=== PATIENT | male | born 1985 | race Caucasian/White ===

== ENCOUNTER 2020-02-07 13:34 | Emergency (ER) | payer OTHER, SELFPAY ==
--- NOTE | ~2020-02-07 | CT_ITS ---
EXAMINATION: CT chst ab pel thor lum w EXAM DATE: 02/07/2020 15:33 INDICATION: 25 foot fall, chest abdomen pelvis pain. TECHNIQUE: Spiral CT of the chest, abdomen and pelvis was performed following intravenous injection o f 100 mL Omnipaque 350. Axial, coronal and sagittal images of the chest and also abdomen and pelvis reviewed. Axial, coronal and sagittal images of the thoracic and also the lumbar spine were reviewed . The dose-length product (DLP) for this examination was 453.01 mGy-cm. The exposure was tailored according to patient size (auto mA exposure control), and iterative reconstruction (ASIR) was used as additional dose reduction technique. There is no prior study for comparison. FINDINGS: CHEST: There is calcified left lower lobe granuloma and some dependent linear atelectasis. There ar e no pleural or pericardial effusions. Tracheobronchial tree is patent. There is no mediastinal, hilar or axillary lymphadenopathy. There is no pneumothorax. Heart normal in size. No evidence of coronary arterial calcification. ABDOMEN PELVIS: There is no solid organ injury. The liver, spleen, adrenal glands and pancreas are u nremarkable. Gallbladder is unremarkable. No biliary obstruction. Portal and splenic veins are pat ent. Kidneys enhance symmetrically. There is no hydronephrosis. The prostate is unremarkable. Th e bladder is unremarkable. There is no retroperitoneal or pelvic lymphadenopathy. The appendix is normal. The stomach and small bowel are unremarkable. There is expected amount of c olonic stool. No free intraperitoneal gas. There are no acute fractures identified. THORACIC SPINE: Paraspinal soft tissue is unremarkable. There are no acute fractures identified. The vertebral bodies are aligned in the AP dimension. Vertebral body and disc heights are well-maintained . No evidence of central canal or neural foraminal stenosis. LUMBAR SPINE: Sacrum, sacroiliac joints, sacral arcuate lines are intact. There is no evidence of ac shilpa lumbar fracture. There is no disc space widening or traumatic vertebral body subluxation suspect ed. Paraspinal soft tissue is unremarkable. Vertebral body and disc heights are well-maintained. There is moderate left neural foraminal stenosis at L5-S1, otherwise no more than mild lumbar spondyl osis. A detailed level by level evaluation of spondylosis can be added as addendum if requested. IMPRESSION: 1. No acute thoracolumbar fracture, chest abdomen or pelvis findings. Reviewed, dictated and finalized at location A.
--- NOTE | ~2020-02-07 | XR_ITS ---
EXAMINATION: XR shoulder RT min 2V EXAM DATE: 02/07/2020 17:19 INDICATION: Initial encounter following injury, with pain of the right shoulder. Fall. TECHNIQUE: The following right shoulder projections obtained: frontal projection with internal rotati on, frontal projection with external rotation, Grashey, and scapular Y view (4+ views). There is no prior study for comparison. FINDINGS: No evidence of right shoulder rotator cuff calcific tendinosis. There is mild acromiocla vicular joint primary osteoarthritis. There are no acute fractures or dislocations identified. There is no subcutaneous gas. The soft tissue is unremarkable. There are no radiopaque foreign bodies. IMPRESSION: 1. Right shoulder exam without acute osseous findings. Reviewed, dictated and finalized at location A.
--- NOTE | ~2020-02-07 | CT_ITS ---
EXAMINATION: CT cervical spine [facility] EXAM DATE: 02/07/2020 15:33 INDICATION: Fall, neck pain. Fell from 25 feet elevation. TECHNIQUE: Spiral CT of the cervical spine was performed without contrast. Axial images were reviewe d. Coronal and sagittal reformatted images were also reviewed. The dose-length product (DLP) for thi s examination was 453.01 mGy-cm. The exposure was tailored according to patient size (auto mA exposu re control), and iterative reconstruction (ASIR) was used as additional dose reduction technique. ere is no prior study for comparison. FINDINGS: There is no evidence of acute cervical fracture. The odontoid process is intact. Pre-dens space is normal. Prevertebral soft tissue is normal. There are no soft tissue abnormalities identi fied. There is moderate C5-6 disc disease with moderate to severe right-sided neural foraminal steno sis and moderate left-sided neural foraminal stenosis at that level. There is moderate left neural fo raminal stenosis at C3-4. Otherwise relatively mild cervical spondylosis. The vertebral bodies are a ligned in the AP dimension. IMPRESSION: 1. No acute cervical findings. 2. Cervical spondylosis. Reviewed, dictated and finalized at location A.
--- NOTE | ~2020-02-07 | XR_ITS ---
EXAMINATION: XR elbow RT min 3V EXAM DATE: 02/07/2020 17:19 INDICATION: Initial encounter following injury, with pain of the right elbow. Fall. TECHNIQUE: Right elbow frontal, lateral with flexion, and oblique projections obtained and reviewed. There is no prior study for comparison. FINDINGS: Right elbow anterior humeral line intact. No evidence of joint effusion. There are no acu te fractures or dislocations identified. There is no subcutaneous gas. The soft tissue is unremarka ble. There are no radiopaque foreign bodies. IMPRESSION: 1. Right elbow exam without acute osseous findings. Reviewed, dictated and finalized at location A.
[2020-02-07 13:40] VITALS: BP 155/85; PULSE 88; RESP 20; TEMP 36.7; O2SAT 100
[2020-02-07 14:00] VITALS: BP 148/101; PULSE 87; RESP 31; TEMP 36.7; O2SAT 99
[2020-02-07] MEDS: ONDANSETRON INJ 4 MG/2 ML VIAL IV PUSH (14:51)
[2020-02-07] MEDS: MORPHINE SULFATE 4 MG/ML INJ IV PUSH (14:52)
[2020-02-07 14:55] LABS: Basophils Percent Auto 0.2 % (0.2-1.2); Eosinophils Percent Auto 0.2 % (0-4.4); Hematocrit 42.5 % (42.0-52.0); Hemoglobin 14.6 g/dL (14.0-18.0); Immature Granulocyte Absolute 0.08 K/mm3 (0.00-0.031); Immature Granulocyte Percent A 0.5 % (0-0.5); Lymphocytes Absolute Auto 1.03 K/mm3 (0.9-3.2); Lymphocytes Percent Auto 5.9 % (18.3-44.2); Mean Corpuscular HGB Conc 34.4 g/dl (32-36); Mean Corpuscular Hemoglobin 31.7 pg (26-34); Mean Corpuscular Volume 92.2 fl (80-100); Mean Platelet Volume 10.5 fl (7.4-10.4); Monocytes Percent Auto 11.1 % (2.6-8.5); Neutrophils Absolute Auto 14.4 K/mm3 (1.3-6.7); Neutrophils Percent Auto 82.1 % (45.5-73.1); Platelet Count Result 264 k/mm3 (150-375); Red Blood Count 4.61 M/mm3 (4.6-6.20); Red Cell Distribution Width 12.2 % (11.5-14.5); White Blood Count 17.5 K/mm3 (4.5-10.0)
[2020-02-07 15:13] LABS: Potassium 3.7 mmol/L (3.4-5.0)
[2020-02-07 15:17] LABS: Alanine Aminotransferase 77 U/L (4-50); Albumin Level 4.7 g/dL (3.5-5.1); Alkaline Phosphatase 54 U/L (38-126); Anion Gap 10 mmol/L (8-16); Aspartate Amino Transferase 110 U/L (17-59); Bilirubin,Total 0.5 mg/dL (0.2-1.3); Blood Urea Nitrogen 15 mg/dL (9-20); Calcium 9.8 mg/dL (8.4-10.2); Carbon Dioxide 26 mmol/L (22-30); Chloride 102 mmol/L (98-107); Estimated CRCL calculation 98 ml/min; Estimated Glomerular Filt Rate > 60; Glucose 109 mg/dL (75-110); Sodium 138 mmol/L (137-145)
[2020-02-07 15:22] LABS: Estimated CRCL calculation 89 ml/min; Estimated Glomerular Filt Rate > 60
[2020-02-07 16:06] LABS: INR 1.1; Prothrombin Time 13.6 Seconds (11.1-14.7)
[2020-02-07 16:07] LABS: Partial Thromboplastin Time 25.8 SECONDS (22.3-36.8)
--- NOTE | 2020-02-07 16:35 | WC.ED.TRAUMA ---
HPI - Trauma General Chief Complaint: Trauma Stated Complaint: fall 1 story Time Seen by Provider: 02/07/20 14:13 Source: patient Mode of arrival: ambulatory Limitations: no limitations History of Present Illness HPI narrative: This is a 34-year-old male that presents the emergency department after a fall today. Reports he fell through the floor and landed in the basement on the concrete. Reports he landed on his right side. Denies hitting his head or loss of consciousness. Reports since he has had right sided chest pain, neck pain, and back pain. Also reports right shoulder and elbow pain. Reports he did lay on the floor for a little bit, but when he got up he was able to walk. Denies vision changes, vomiting, numbness, or weakness. Related Data Allergies Allergy/AdvReac Type Severity Reaction Status Date / Time No Known Allergies Allergy Verified 02/07/20 14:13 Review of Systems Review of Systems: Narrative: CONSTITUTIONAL: Denies fever EYES: Denies visual changes CARDIOVASCULAR: Reports chest pain RESPIRATORY: Denies dyspnea. GASTROINTESTINAL: Reports abdominal pain. Denies nausea, vomiting GENITOURINARY: Denies dysuria or hematuria. SKIN: Denies rash MUSCULOSKELETAL: Reports back pain, joint pain, and myalgia. NEUROLOGIC: Denies headache, numbness, or weakness. All systems reviewed & are unremarkable except as noted in HPI and below PMFSH Past Medical History Medical History (Updated 02/07/20 @ 19:28 by Monse Valladares PA-C) No active medical problems Social History Social History (Updated 02/07/20 @ 16:38 by Monse Valladares PA-C) Smoking status: Current every day smoker Exam Narrative: Exam Narrative: GENERAL: Well-appearing, well-nourished, and in no acute distress. HEAD: Normocephalic, atraumatic. EYES: PERRLA and EOMI. ENT: Nares clear, no rhinorrhea or epistaxis. Mucous membranes moist. Oropharynx without tonsillar hypertrophy exudate or other lesions. Bilateral TMs pearly garcia non-bulging NECK: Supple. No adenopathy or masses. Tender to palpation of right sided cervical paraspinal musculature CHEST: Clear to auscultation. No respiratory distress. No wheezes rales or rhonchi HEART: Regular rate and rhythm. No murmur heard. Normal peripheral pulses. ABDOMEN: Soft, nontender, nondistended, normal active bowel sounds. BACK: Tender to palpation of midline thoracic and lumbar spine EXTREMITIES: Normal range of motion. No edema or obvious deformity. Strength equal in bilateral upper and lower extremities (5/5) SKIN: Warm, dry, no rash. NEURO: No focal deficits. Alert and oriented x3. Cranial nerves II through XII grossly intact PSYCH: Normal mood and affect Course Vital Signs Vital signs: Vital Signs Temperature 98.1 F 02/07/20 13:40 Pulse Rate 88 02/07/20 13:40 Respiratory Rate 20 02/07/20 13:40 Blood Pressure 155/85 H 02/07/20 13:40 Pulse Oximetry 100 02/07/20 13:40 Temperature 98.1 F 02/07/20 14:00 Pulse Rate 92 02/07/20 18:18 Respiratory Rate 25 H 02/07/20 18:18 Blood Pressure 144/97 H 02/07/20 18:18 Pulse Oximetry 98 02/07/20 18:18 MDM - Trauma MDM Narrative Medical decision making narrative: Patient presents the emergency department today after a fall from height. Landed on his right side. Denied hitting his head or loss of consciousness. His vitals are stable. He is neurologically intact. CBC with leukocytosis to 17.5, likely stress reaction. No infectious symptoms. Metabolic panel without concerning findings. CT scan of the cervical spine is without acute findings. CT scan of the chest/abdomen/pelvis, thoracic and lumbar spine is without acute findings. Right shoulder and elbow x-rays are without acute findings. Patient was updated on case findings. Mentioned to me that he would also like to be tested and presumptively treated for STDs. UA with 7-9 white blood cells, and 11-20 red blood cells. This will be sent for culture. Chlamydia, gonorrh
[2020-02-07 17:17] VITALS: BP 147/98; PULSE 85; RESP 18; O2SAT 100
[2020-02-07 17:45] LABS: Add Urine Microscopic? YES; Appearance Urine Clear (Clear); Bilirubin Urine Negative (Negative); Blood Urine 2+ (Negative); Color Urine Yellow (Yellow); Glucose Urine UA 1+ mg/dL (Negative); Ketones Urine Trace mg/dL (Negative); Leukocyte Esterase Ur Negative LEU/UL (Negative); Mucus Urine Heavy /lpf; Nitrate Urine Negative (Negative); Protein Urine 2+ mg/dL (Negative); Squamous Epithelial Cell Urine Rare /hpf (Few); Urobilinogen Urine Negative mg/dL (<2.0)
[2020-02-07 17:47] LABS: Specific Grav Ur > 1.060 (1.001-1.035)
[2020-02-07] MEDS: AZITHROMYCIN 250 MG TABLET 1000 MG PO (18:12)
[2020-02-07] MEDS: metroNIDAZOLE 250 MG TABLET 2000 MG PO (18:12)
[2020-02-07] MEDS: cefTRIAXone 250 MG VIAL IM (18:13)
[2020-02-07 18:18] VITALS: BP 144/97; PULSE 92; RESP 25; O2SAT 98
--- NOTE | 2020-02-07 18:18 | PC.NURSE ---
Assumed care of pt. Discussed POC. Female at bedside. VSS.
[2020-02-07 20:01] VITALS: BP 134/82; PULSE 80; RESP 18; TEMP 36.8; O2SAT 98
[2020-02-07 20:11] VITALS: BP 156/86; PULSE 69; RESP 16; O2SAT 98
== END 2020-02-07 20:02 | disposition home or self-care (01) ==
PROVIDERS: Physician Assistant; Emergency Provider Emergency Medicine
DX: M54.9 Dorsalgia, unspecified (principal); M25.511 Pain in right shoulder; W13.3XXA Fall through floor, initial encounter; F17.200 Nicotine dependence, unspecified, uncomplicated
CPT/HCPCS: 36415; 71260; 72125; 72129; 72132; 73030; 73080; 74177; 80053; 81001; 85025; 85610; 85730; 87086; 87491; 87591; 87661; 96365; 96372; 96375; 99284; A9270; J0131; J0696; J2270; J2405; L0140; Q9967

== ENCOUNTER 2021-03-21 18:39 | Emergency (ER) | payer OTHER, SELFPAY ==
--- NOTE | ~2021-03-21 | XR_ITS ---
XR hand RT min 3V 03/21/2021 19:09 Indication: Right first distal phalangeal trauma Procedure: 3 views right hand Comparison: No prior studies for comparison. Findings: There is a nondisplaced comminuted fracture of the first distal phalanx. Mild soft tissue s welling. No foreign bodies. There are degenerative changes of the first metacarpal phalangeal joint. No other fracture. Impression: 1: Comminuted nondisplaced fracture right first distal phalanx. Reviewed, dictated and finalized at location A. Impression: 1: Comminuted nondisplaced fracture right first distal phalanx.
[2021-03-21 18:42] VITALS: BP 152/108; PULSE 100; RESP 18; TEMP 36.6; O2SAT 100
--- NOTE | 2021-03-21 18:57 | ED_ITS ---
HPI - Extremity Injury (Upper) General Chief Complaint: Extremity Injury, Upper Stated Complaint: RIGHT THUMB INJURY Time Seen by Provider: 03/21/21 18:49 Source: patient Mode of arrival: ambulatory Limitations: no limitations History of Present Illness HPI narrative: Patient is a 36-year-old male complaining of right thumb pain after he accidentally smashed it at work with a hammer while working yesterday. Patient states that his pain is 9 out of 10, aching, worse with palpation and movement. Patient denies any other pain or injuries. Related Data Allergies Allergy/AdvReac Type Severity Reaction Status Date / Time No Known Allergies Allergy Verified 02/07/20 14:13 Review of Systems Review of Systems: All systems reviewed & are unremarkable except as noted in HPI and below Constitutional: Constitutional: Reports as per HPI [facility] Past Medical History Medical History (Updated 03/21/21 @ 19:56 by Kevyn Addison MD) No active medical problems Social History Social History (Updated 02/07/20 @ 16:38 by Monse Valladares PA-C) Smoking status: Current every day smoker Comments Past medical history: None Family history: Noncontributory Social history: Positive for smoker, no EtOH or drug use Exam Const: General: no acute distress and alert Orientation/consciousness: patient oriented x3 HENMT: Head: normal to inspection Eyes: Conjunctivae: conjunctivae normal Pupils: Equal, round and reactive pupils present EOM: EOMs intact bilaterally Neck: Neck: normal visual inspection Resp: Effort & Inspection: normal respiratory effort Neuro: General: patient oriented x3 and moves all extremities Extrem: Other: Right thumb swelling, contusion right thumb, ecchymosis right thumb, limited range of motion due to pain, neurovascular is intact Course Vital Signs Vital signs: Vital Signs Temperature 36.6 C 03/21/21 18:42 Pulse Rate 100 03/21/21 18:42 Respiratory Rate 18 03/21/21 18:42 Blood Pressure 152/108 H 03/21/21 18:42 Pulse Oximetry 100 03/21/21 18:42 Temperature 36.6 C 03/21/21 18:42 Pulse Rate 100 03/21/21 18:42 Respiratory Rate 18 03/21/21 18:42 Blood Pressure 152/108 H 03/21/21 18:42 Pulse Oximetry 100 03/21/21 18:42 Discharge Plan Discharge Clinical Impression: Fracture of distal phalanx of finger of right hand Patient Disposition: Home, Self-Care Condition: Improved Instructions: Finger Fracture (ED) Prescriptions: New hydrocodone-acetaminophen 5-325 mg tablet 1 tablet PO Q6H PRN (Reason: pain) Qty: 10 RF: 0 cephalexin 500 mg capsule 500 mg PO Q12H 5 Days Qty: 10 RF: 0 No Action ketorolac 10 mg tablet 10 mg PO Q6H PRN (Reason: pain) 5 Days Qty: 20 RF: 0 Follow-up/Referrals: PHYSICIAN,SCIENCE AND OPERATIONS OFFICER [Primary Care Provider] - Andrew Fonseca MD [Physician] - 03/22/21 (Call for an appointment) Time of Disposition: 19:58
[2021-03-21] MEDS: HYDROcodone/acetaminophen (*CRX) 7.5-325 MG TABLET 1 TAB PO (19:14)
[2021-03-21] MEDS: KETOROLAC 30 MG/ML VIAL (*BKC) IM (19:15)
[2021-03-21] MEDS: TETANUS,DIPHTHERIA,AC PERTUSSIS ADULT (0.5 ML) BOOSTRIX IM (19:17)
[2021-03-21] MEDS: CEPHALEXIN 500 MG CAPSULE PO (19:56)
== END 2021-03-21 20:00 | disposition home or self-care (01) ==
PROVIDERS: Emergency Provider Emergency Medicine
DX: S62.524A Nondisplaced fracture of distal phalanx of right thumb, initial encounter for closed fracture (principal); W27.0XXA Contact with workbench tool, initial encounter; Z23 Encounter for immunization
CPT/HCPCS: 29130; 73130; 90471; 90715; 96372; 99284; A9270; J1885

== ENCOUNTER 2021-03-24 22:31 | Emergency (ER) | payer OTHER, SELFPAY ==
[2021-03-24 22:34] VITALS: BP 150/79; PULSE 84; RESP 20; TEMP 36.5; O2SAT 95
--- NOTE | 2021-03-24 23:25 | PC.NURSE ---
Pt and visitor seen exiting ER lobby to parking lot.
--- NOTE | 2021-03-24 23:30 | ED.EYEPROB ---
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, that he got for an object in his left eye which he believes to be a speck of drywall There was no high velocity grinding or striking with a sledgehammer anything like that during the course of his job In the intervening 3 days that has been subjected to his efforts to remove it in home by various means including rubbing it showering it washing it out under a faucet It seems that tonight his girlfriend finally was able to talk him into the coming to the hospital His eye is red and teary but vision seems to be okay although he has trouble opening the eye MD chief complaint: eye pain and eye redness Related Data Allergies Allergy/AdvReac Type Severity Reaction Status Date / Time No Known Allergies Allergy Verified 03/24/21 22:49 Review of Systems Eyes: Eyes: Reports no additional eye complaints and Reports photophobia ENT: Denies vertigo and Denies dizziness Neurologic: Denies headache(s), Denies numbness and Denies weakness Hematologic/Lymphatic: Hematologic/Lymphatic: Denies easy bleeding and Denies easy bruising PMFSH Past Medical History Medical History No active medical problems Social History Social History Smoking status: Current every day smoker Exam Const: General: cooperative, no acute distress and alert Orientation/consciousness: patient oriented x3 (alert) Other: + EtOH HENMT: Head: normal to inspection, normocephalic and atraumatic Ears: external ears normal General nose exam: no epistaxis Eyes: Pupils: Equal, round and reactive pupils present Other: OS conjunctiva injected There is a corneal foreign body at 10:00 about nursing home to the [facility] Is embedded and cannot be removed with a Q-tip Alcaine completely relieved all his symptoms The eyelid was everted and there was no foreign body beneath it Neck: Neck: normal visual inspection, supple and no JVD Resp: Effort & Inspection: normal respiratory effort and not labored Auscultation: other (BS =) Skin: General skin exam: no rashes or lesions noted Neuro: General: patient oriented x3 (alert) and moves all extremities Course Course Emergency Course: See procedure note Patient eloped from the ED while I was discussing his case with ophthalmology at [facility] to arrange follow-up Contacted him on his cell phone and asked him to come back and get his directions which he did Vital Signs Vital signs: Vital Signs Temperature 36.5 C 03/24/21 22:34 Pulse Rate 84 03/24/21 22:34 Respiratory Rate 20 03/24/21 22:34 Blood Pressure 150/79 H 03/24/21 22:34 Pulse Oximetry 95 03/24/21 22:34 Temperature 36.5 C 03/24/21 22:34 Pulse Rate 84 03/24/21 22:34 Respiratory Rate 20 03/24/21 22:34 Blood Pressure 150/79 H 03/24/21 22:34 Pulse Oximetry 95 03/24/21 22:34 Procedures FB Removal Eye Foreign Body #1: Foreign Body Removal Date: 03/24/21 Foreign Body Removal Time: 22:30 Location: eye (L) Topical anesthetic used: tetracaine Foreign body: metal Evidence of corneal penetration: No Technique: cotton tip swab and needle Procedure performed under: direct visualization with magnification Post-procedure medication: topical anesthetic Patient tolerated procedure: well Complications: residual rust ring Foreign Body Removal Narrative: Discussed that foreign body remains and that he needs to
--- NOTE | 2021-03-24 23:38 | PC.NURSE ---
Pt given specific d/c instructions verbally and in paper form by dr. bravo, with this RN as witness. pt verbalized understanding of need to call [facility] next business day which is friday am, for procedure.
== END 2021-03-24 23:41 | disposition home or self-care (01) ==
PROVIDERS: Emergency Provider Emergency Medicine
DX: T15.02XA Foreign body in cornea, left eye, initial encounter (principal); F17.200 Nicotine dependence, unspecified, uncomplicated
CPT/HCPCS: 65220; 99283

== ENCOUNTER 2022-02-25 12:05 | Emergency (ER) | payer OTHER, SELFPAY ==
--- NOTE | ~2022-02-25 | CT_ITS ---
EXAMINATION: CT brain wo con DATE: 02/25/2022 13:01 INDICATION: Generalized headache. TECHNIQUE: Computed tomography (CT) of the head was performed without intravenous contrast. The dose- length product was 605.33 mGy-cm. Automated exposure control and iterative reconstruction technique w ere employed. COMPARISON: No prior studies for comparison. FINDINGS: Normal brain parenchymal volume. No acute intracranial hemorrhage, infarction, mass or mass effect. There is focal encephalomalacia left frontal lobe, likely posttraumatic. Paranasal sinuses a nd mastoids are pneumatized. IMPRESSION: 1. Focal encephalomalacia left frontal lobe, likely posttraumatic. 2: No acute intracranial abnormality. Reviewed, dictated and finalized at location A.
--- NOTE | 2022-02-25 12:14 | PC.NURSE ---
EDP at bedside to assess pt.
[2022-02-25 12:19] VITALS: BP 144/87; PULSE 101; RESP 18; TEMP 36.4; O2SAT 100
[2022-02-25] MEDS: SODIUM CHLORIDE 0.9% IV 1,000 ML 999 ML IV CONT (12:36)
--- NOTE | 2022-02-25 12:38 | ED.HA ---
HPI - Headache General Chief Complaint: Headache Stated Complaint: headache, body aches Time Seen by Provider: 02/25/22 12:13 History of Present Illness HPI Narrative: 37-year-old male presents to the emergency room with a sudden onset of headache 4 days ago. Patient states that headache is in the middle of his head, describes it as a dull throbbing sensation and radiates into his neck. States when the headache began he was experiencing chills and diaphoresis. Headache is associated with body aches. Denies any nausea or vomiting. Denies any vision or hearing changes. But denies any injury or or trauma. Denies back pain. Denies dizziness or lightheadedness. Related Data Allergies Allergy/AdvReac Type Severity Reaction Status Date / Time No Known Allergies Allergy Verified 02/25/22 12:38 Review of Systems Review of Systems: CONSTITUTIONAL: Reports chills and sweats EYES: Denies visual changes, redness, or discharge. ENT: Denies rhinorrhea, congestion, sore throat, or otalgia. CARDIOVASCULAR: Denies chest pain, palpitations, or edema. RESPIRATORY: Denies cough or dyspnea. GASTROINTESTINAL: Denies abdominal pain, nausea, vomiting, or diarrhea. GENITOURINARY: Denies dysuria or hematuria. SKIN: Denies rash or itching. MUSCULOSKELETAL: Denies back pain, joint pain, or myalgia. NEUROLOGIC: Reports sciatic PSYCHIATRIC: Denies anxiety or depression. PMFSH Past Medical History Medical History No active medical problems Social History Social History Smoking status: Current every day smoker Exam Narrative: GENERAL: Well-appearing, well-nourished, no physical limitations, and in no acute distress. HEAD: Normocephalic, atraumatic. EYES: Conjunctivae normal, PERRLA and EOMI. ENT: External nose normal, Nares clear, no rhinorrhea or epistaxis. External ears normal, bilateral TMs normal bilaterally NECK: Supple. No meningeal signs. CHEST: Clear to auscultation. No respiratory distress. No wheezes rales or rhonchi. HEART: Regular rate and rhythm. No murmur heard. Normal peripheral pulses. ABDOMEN: Soft, nontender, nondistended, normal active bowel sounds. BACK: No cervical/thoracic/lumbar tenderness, step-offs, bony abnormality; FROM EXTREMITIES: Normal range of motion. No edema. No clubbing or cyanosis SKIN: Warm, dry, no rash. No noted wounds NEURO: No focal deficits. Alert and oriented x3. MAEW. CN's II-XI intact bilaterally, normal gait PSYCH: Cooperative. Normal mood and affect. Course Vital Signs Vital signs: Vital Signs Temperature 36.4 C L 02/25/22 12:19 Pulse Rate 101 H 02/25/22 12:19 Respiratory Rate 18 02/25/22 12:19 Blood Pressure 144/87 H 02/25/22 12:19 Pulse Oximetry 100 02/25/22 12:19 Oxygen Delivery Room Air 02/25/22 12:19 Temperature 36.4 C L 02/25/22 12:19 Pulse Rate 101 H 02/25/22 12:19 Respiratory Rate 18 02/25/22 12:19 Blood Pressure 144/87 H 02/25/22 12:19 Pulse Oximetry 100 02/25/22 12:19 Oxygen Delivery Room Air 02/25/22 12:19 MDM - Headache Lab Data Result diagrams: 02/25/22 12:37 02/25/22 12:37 Labs: Lab Results 02/25/22 02/25/22 02/25/22 Range/Units 12:37 12:37 12:37 WBC 3.6 L (4.5-10.0) K/mm3 RBC 4.45 L (4.6-6.20) M/mm3 Hgb 13.9 L (14.0-18.0) g/dL Hct 39.9 L (42.0-52.0) % MCV 89.7 (80-100) fl MCH 31.2 (26-34) pg MCHC 34.8 (32-36) g/dl RDW 11.9 (11.5-14.5) % Plt Count 183 (150-375) k/mm3 MPV 10.4 (7.4-10.4) fl Immature Gran % (Auto) 0.3 (0-0.5) % Neut % (Auto) 39.6 L (45.5-73.1) % Lymph % (Auto) 27.2 (18.3-44.2) % Letcher % (Auto) 27.5 H (2.6-8.5) % Eos % (Auto) 4.9 H (0-4.4) % Baso % (Auto) 0.5 (0.2-1.2) % Lymph # (Auto) 0.99 (0.9-3.2) K/mm3 Letcher # (Auto) 1.0 H (0.1-0.6) K/mm3 Eos # (Auto) 0.2 (0-0.3) K
[2022-02-25 12:45] LABS: Appearance Urine Clear (Clear); Basophils Percent Auto 0.5 % (0.2-1.2); Bilirubin Urine Negative (Negative); Blood Urine Negative (Negative); Color Urine Yellow (Yellow); Eosinophils Absolute Auto 0.2 K/mm3 (0-0.3); Eosinophils Percent Auto 4.9 % (0-4.4); Glucose Urine UA Negative (Negative); Hematocrit 39.9 % (42.0-52.0); Hemoglobin 13.9 g/dL (14.0-18.0); Immature Granulocyte Absolute 0.01 K/mm3 (0.00-0.031); Immature Granulocyte Percent A 0.3 % (0-0.5); Ketones Urine Trace mg/dL (Negative); Leukocyte Esterase Ur Negative LEU/UL (Negative); Lymphocytes Absolute Auto 0.99 K/mm3 (0.9-3.2); Lymphocytes Percent Auto 27.2 % (18.3-44.2); Mean Corpuscular HGB Conc 34.8 g/dl (32-36); Mean Corpuscular Hemoglobin 31.2 pg (26-34); Mean Corpuscular Volume 89.7 fl (80-100); Mean Platelet Volume 10.4 fl (7.4-10.4); Monocytes Percent Auto 27.5 % (2.6-8.5); Neutrophils Absolute Auto 1.4 K/mm3 (1.3-6.7); Neutrophils Percent Auto 39.6 % (45.5-73.1); Nitrate Urine Negative (Negative); Platelet Count Result 183 k/mm3 (150-375); Protein Urine 1+ mg/dL (Negative); Red Blood Count 4.45 M/mm3 (4.6-6.20); Red Cell Distribution Width 11.9 % (11.5-14.5); Specific Grav Ur 1.025 (1.001-1.035); White Blood Count 3.6 K/mm3 (4.5-10.0); pH Urine 6.5 (5.0-9.0)
[2022-02-25 12:50] LABS: Mucus Urine Few /lpf; RBC Urine 0-2 /hpf (0-2); WBC Urine 0-3 /hpf
[2022-02-25 12:55] LABS: Add Urine Microscopic? YES
[2022-02-25 13:01] LABS: Lactic Acid Reflex 0.7 mmol/L (0.7-2.0)
[2022-02-25 13:02] LABS: Alanine Aminotransferase 34 U/L (6-50); Albumin Level 4.4 g/dL (3.5-5.1); Alkaline Phosphatase 49 U/L (38-126); Anion Gap 9 mmol/L (8-16); Aspartate Amino Transferase 36 U/L (17-59); Bilirubin,Total 0.3 mg/dL (0.2-1.3); Blood Urea Nitrogen 10 mg/dL (9-20); Calcium 8.8 mg/dL (8.4-10.2); Carbon Dioxide 27 mmol/L (22-30); Chloride 101 mmol/L (98-107); Estimated CRCL calculation 110 ml/min; Estimated Glomerular Filt Rate > 60; Glucose 89 mg/dL (65-110); Sodium 137 mmol/L (137-145)
[2022-02-25] MEDS: KETOROLAC 30 MG/ML VIAL (*BKC) IV PUSH (13:17)
[2022-02-25 13:49] LABS: SARS-CoV-2 RNA PCR Negative
[2022-02-25 14:20] LABS: CRP 1.2 mg/dL (<1.0)
[2022-02-25 14:52] VITALS: BP 122/78; PULSE 76; RESP 18; O2SAT 100
[2022-02-25 15:22] LABS: Erythrocyte Sedimentation Rate 17 mm/hr (0-20)
== END 2022-02-25 14:55 | disposition home or self-care (01) ==
PROVIDERS: Emergency Provider Nurse Practitioner Family
DX: G44.209 Tension-type headache, unspecified, not intractable (principal); Z20.822 Contact with and (suspected) exposure to COVID-19; F17.200 Nicotine dependence, unspecified, uncomplicated
CPT/HCPCS: 36415; 70450; 80053; 81001; 83605; 85025; 85652; 86140; 96361; 96374; 99284; C9803; J1885; J7030; U0003; U0005

== ENCOUNTER 2023-04-15 08:26 | Emergency (ER) | payer OTHER, SELFPAY ==
--- NOTE | ~2023-04-15 | CT_ITS ---
EXAMINATION: CT BRAIN W/O DATE: 04/15/2023 09:17 INDICATION: Headache TECHNIQUE: Computed tomography (CT) of the head was performed without intravenous contrast. The dose- length product was 529.67 mGy-cm. Automated exposure control and iterative reconstruction technique w ere employed. COMPARISON: No prior studies for comparison. FINDINGS: Normal brain parenchymal volume for age. Normal garcia-white differentiation. No acute intrac ranial hemorrhage, infarction, mass or mass effect. No ventriculomegaly or midline shift. Midline sagittal images demonstrate a normal corpus callosum, c raniovertebral junction and sella turcica. Basilar cisterns are patent. Paranasal sinuses and mastoids are pneumatized. No depressed skull fractures. IMPRESSION: 1. No acute intracranial abnormality. Reviewed, dictated and finalized at location L. CAL MASSAGE THERAPIST
--- NOTE | ~2023-04-15 | CT_ITS ---
EXAMINATION: CTA brain carotid DATE: 04/15/2023 10:07 INDICATION: Headache. Left hemiparesis. TECHNIQUE: Computed tomographic angiography (CTA) of the head was performed with 100 mL Omnipaque-350 intravenous contrast. CTA of the neck was performed with intravenous contrast. Automated exposure co ntrol and iterative reconstruction technique were employed. The dose-length product was 1050.00 mGy-c m. Maximum intensity projection and volume rendered 3D-reconstructions were created by the [employer] st on a separate workstation. COMPARISON: Head CT 04/15/2023 FINDINGS: HEAD CTA: There is no intracranial hemorrhage, acute infarction, or abnormal intracranial mass lesion . The ventricles are normal in size. There is mild mucosal thickening in the paranasal sinuses. The o rbits are normal. The mastoid air cells are normal. Left vertebral artery is dominant. There is no si gnificant stenosis of basilar artery or the posterior cerebral arteries. The posterior communicating arteries are normal. There is no significant stenosis of the intracranial internal carotid arteries o r anterior or middle cerebral arteries. Anterior communicating artery is normal. There is no aneurysm . NECK CTA: There are no pathologically enlarged lymph nodes. There is no significant stenosis of the v ertebral arteries. There is no visible plaque in the proximal internal carotid arteries. There is 0% stenosis of the proximal right internal carotid artery relative to normal distal artery lumen diamete r (NASCET criteria). There is 0% stenosis of the proximal left internal carotid artery relative to no rmal distal artery lumen diameter. There is moderate cervical spondylosis. IMPRESSION: 1. Normal brain. No aneurysm or significant intracranial internal stenosis. 2. 0% stenosis of the proximal internal carotid arteries relative to normal distal artery lumen diam eters (NASCET criteria). Reviewed, dictated and finalized at location E. TION PAINT MACHINE TENDER IMPRESSION: 1. Normal brain. No aneurysm or significant intracranial internal stenosis. 2. 0% stenosis of the proximal internal carotid arteries relative to normal di stal artery lumen diameters (NASCET criteria).
[2023-04-15 08:36] VITALS: BP 133/95; PULSE 82; RESP 15; TEMP 36.4; O2SAT 96
[2023-04-15 08:40] VITALS: BP 133/95; PULSE 82; RESP 15; O2SAT 96
--- NOTE | 2023-04-15 08:45 | ED.GENADULT ---
HPI - General Adult General Chief complaint: Neuro Symptoms/Deficit Stated complaint: BRAIN PAIN AFTER ARGUMENT Time Seen by Provider: 04/15/23 08:33 History of Present Illness HPI narrative: 38-year-old male presenting to the emergency department for evaluation of headache. Patient states he was drinking alcohol last night got into verbal altercation with a family member. Patient states at that time he started having increased headache and some left-sided weakness. Patient states that he went to bed woke up and still having a headache and left-sided weakness. patient denies any prior history of intracranial abnormality denies any prior history of stroke Related Data Allergies Allergy/AdvReac Type Severity Reaction Status Date / Time No Known Allergies Allergy Verified 04/15/23 08:35 Review of Systems Review of Systems: All systems reviewed & are unremarkable except as noted in HPI and below PMFSH Past Medical History Medical History No active medical problems Social History Social History Smoking status: Current every day smoker Exam Narrative: APPEARANCE: Well appearing, no pain, no distress, well-nourished. HEAD: normocephalic, atraumatic. EYES: PERRLA/EOMI, conjunctivae clear. NOSE: Normal no drainage EARS:TMS clear with good light reflex. THROAT: Pharynx clear, no exudate. NECK: Supple. No adenopathy, no masses. RESPIRATORY: Airway patent, respirations nonlabored. Clear to auscultation bilaterally, no rales, rhonchi, wheezing. CARDIOVASCULAR: Regular rate and rhythm without murmurs rubs or gallops. ABDOMINAL: Soft, nontender, nondistended, normal bowel sounds MUSCULOSKELETAL: Moves all extremities. Strength/ROM intact, No edema, No calf tenderness. NEURO: Alert. Cranial nerves II through XII intact. Good gait. Good coordination SKIN: Warm, dry. Normal Color Course Course Emergency Course: 38-year-old male presenting to the emergency department for evaluation of headache and left-sided week. Symptoms had resolved prior to arrival to the emergency department. During examination patient declined having any persistent numbness or weakness of the left side. CT CTA were negative for acute intracranial abnormalities. Patient states he does feel improved and is requesting discharge to home. Patient was afebrile with no leukocytosis and a stable hemoglobin. No significant electrolyte abnormalities CMP patient's alcohol level still elevated at 131. Patient was updated results of his workup and patient prefers to be discharged home. All questions and concerns were addressed patient was well-appearing at time of discharge. Vital Signs Vital signs: Vital Signs Temperature 97.5 F L 04/15/23 08:36 Pulse Rate 82 04/15/23 08:36 Respiratory Rate 15 04/15/23 08:36 Blood Pressure 133/95 H 04/15/23 08:36 Pulse Oximetry 96 04/15/23 08:36 Oxygen Delivery Room Air 04/15/23 08:36 Temperature 97.5 F L 04/15/23 08:36 Pulse Rate 74 04/15/23 11:16 Respiratory Rate 15 04/15/23 11:16 Blood Pressure 143/90 H 04/15/23 11:16 Pulse Oximetry 97 04/15/23 11:16 Oxygen Delivery Room Air 04/15/23 08:36 Medical Decision Making Differential Diagnosis Differential Diagnosis: CVA, anxiety, alcohol intoxication Vital Signs Vital Signs: Vital Signs Temperature 97.5 F L 04/15/23 08:36 Pulse Rate 82 04/15/23 08:36 Respiratory Rate 15 04/15/23 08:36 Blood Pressure 133/95 H 04/15/23 08:36 Pulse Oximetry 96 04/15/23 08:36 Oxygen Delivery Room Air 04/15/23 08:36 Temperature 97.5 F L 04/15/23 08:36 Pulse Rate 74 04/15/23 11:16 Respiratory Rate 15 04/15/23 11:16 Blood Pressure 143/90 H 04/15/23 11:16 Pulse Oximetry 97 04/15/23 11:16 Oxygen Delivery Room Air 04/15/23 08:36 Lab Data Lab results reviewed: Yes I reviewed the patient's
[2023-04-15 09:03] VITALS: BP 139/104; PULSE 80; RESP 13; O2SAT 96
[2023-04-15 09:03] LABS: Basophils Absolute Auto 0.1 K/mm3 (0.0-0.1); Eosinophils Absolute Auto 0.1 K/mm3 (0-0.3); Eosinophils Percent Auto 1.9 % (0-4.4); Hematocrit 45.5 % (42.0-52.0); Hemoglobin 15.2 g/dL (14.0-18.0); Immature Granulocyte Absolute 0.03 K/mm3 (0.00-0.031); Immature Granulocyte Percent A 0.6 % (0-0.5); Lymphocytes Percent Auto 44.6 % (18.3-44.2); Mean Corpuscular HGB Conc 33.4 g/dl (32-36); Mean Corpuscular Hemoglobin 31.1 pg (26-34); Mean Platelet Volume 10.1 fl (7.4-10.4); Monocytes Absolute Auto 0.7 K/mm3 (0.1-0.6); Monocytes Percent Auto 14.3 % (2.6-8.5); Neutrophils Absolute Auto 1.9 K/mm3 (1.3-6.7); Neutrophils Percent Auto 37.6 % (45.5-73.1); Platelet Count Result 267 k/mm3 (150-375); Red Blood Count 4.89 M/mm3 (4.6-6.20); Red Cell Distribution Width 11.9 % (11.5-14.5); White Blood Count 5.2 K/mm3 (4.5-10.0)
[2023-04-15 09:08] LABS: Appearance Urine Clear (Clear); Bilirubin Urine Negative (Negative); Blood Urine Negative (Negative); Color Urine Yellow (Yellow); Glucose Urine UA Negative (Negative); Ketones Urine Negative (Negative); Leukocyte Esterase Ur Negative LEU/UL (Negative); Nitrate Urine Negative (Negative); Protein Urine Negative (Negative); Specific Grav Ur 1.021 (1.001-1.035)
[2023-04-15 09:09] LABS: Add Urine Microscopic? NO
[2023-04-15 09:13] LABS: Alanine Aminotransferase 44 U/L (6-50); Albumin Level 4.5 g/dL (3.5-5.1); Alkaline Phosphatase 48 U/L (38-126); Anion Gap 11 mmol/L (8-16); Aspartate Amino Transferase 39 U/L (17-59); Bilirubin,Total 0.6 mg/dL (0.2-1.3); Blood Urea Nitrogen 14 mg/dL (9-20); Carbon Dioxide 24 mmol/L (22-30); Chloride 106 mmol/L (98-107); Estimated CRCL calculation 123 ml/min; Estimated Glomerular Filt Rate > 60; Glucose 108 mg/dL (65-110); Potassium 4.3 mmol/L (3.4-5.0); Sodium 141 mmol/L (137-145)
[2023-04-15 09:14] LABS: INR 0.9; Prothrombin Time 12.8 Seconds (11.1-14.7)
[2023-04-15 09:15] LABS: Partial Thromboplastin Time 27.7 SECONDS (22.3-36.8)
[2023-04-15 09:55] LABS: Ethanol 131 mg/dL (<10)
[2023-04-15] MEDS: SODIUM CHLORIDE 0.9% IV 1,000 ML 999 ML IV CONT (10:11)
[2023-04-15 10:13] VITALS: BP 140/100; PULSE 78; RESP 14; O2SAT 96
[2023-04-15 11:16] VITALS: BP 143/90; PULSE 74; RESP 15; O2SAT 97
== END 2023-04-15 11:17 | disposition home or self-care (01) ==
PROVIDERS: Emergency Provider Emergency Medicine
DX: R51.9 Headache, unspecified (principal)
CPT/HCPCS: 36415; 70450; 70496; 70498; 80053; 80307; 81003; 85025; 85610; 85730; 96360; 99284; J7030; Q9967

== ENCOUNTER 2023-05-14 05:56 | Emergency (ER) | payer OTHER, SELFPAY ==
[2023-05-14 05:57] VITALS: BP 145/88; PULSE 78; RESP 16; TEMP 36.4; O2SAT 99
--- NOTE | 2023-05-14 06:33 | ED.GENADULT ---
HPI - General Adult General Chief complaint: Dental/Oral Stated complaint: dental pain/swelling Time Seen by Provider: 05/14/23 06:31 History of Present Illness HPI narrative: patient is a 38-year-old gentleman who presents emergency department with chief complaint of dental pain. Patient reports that he had a tooth break off and has had swelling of the gums in that area the patient reports that he has no trismus no difficulty swallowing reports that he does not have a local dentist. Related Data Allergies Allergy/AdvReac Type Severity Reaction Status Date / Time No Known Allergies Allergy Verified 04/15/23 08:35 Review of Systems Review of Systems: A 10 system review of systems was completed on the patient and is negative except for what is stated in the HPI. Nursing and ancillary documentation was reviewed. [facility] Past Medical History Medical History No active medical problems Social History Social History Smoking status: Current every day smoker Exam Narrative: GENERAL: Well-appearing, well-nourished, and in no acute distress. HEAD: Normocephalic, atraumatic. EYES: PERRLA and EOMI. ENT: Nares clear, no rhinorrhea or epistaxis. Mucous membranes moist. There is a dental fracture in the left lower molar there is erythema of the gums there is no fluctuance there is no crepitus there is no necrotic tissue there is no trismus NECK: Supple. CHEST: Clear to auscultation. No respiratory distress. HEART: Regular rate and rhythm. No murmur heard. Normal peripheral pulses. ABDOMEN: Soft, nontender, nondistended, normal active bowel sounds. EXTREMITIES: Normal range of motion. No edema. SKIN: Warm, dry, no rash. NEURO: No focal deficits. Alert and oriented x3. PSYCH: Normal mood and affect. Course Vital Signs Vital signs: Vital Signs Temperature 36.4 C L 05/14/23 05:57 Pulse Rate 78 05/14/23 05:57 Respiratory Rate 16 05/14/23 05:57 Blood Pressure 145/88 H 05/14/23 05:57 Pulse Oximetry 99 05/14/23 05:57 Oxygen Delivery Room Air 05/14/23 05:57 Temperature 36.4 C L 05/14/23 05:57 Pulse Rate 78 05/14/23 05:57 Respiratory Rate 16 05/14/23 05:57 Blood Pressure 145/88 H 05/14/23 05:57 Pulse Oximetry 99 05/14/23 05:57 Oxygen Delivery Room Air 05/14/23 05:57 Medical Decision Making MDM Narrative Medical decision making narrative: differential diagnosis includes dental abscess, dental fracture. Patient shows no signs of Matt's angina or evidence of trench mouth no evidence of trismus or significant abscess that could impact airway. The patient was started on amoxicillin Vital Signs Vital Signs: Vital Signs Temperature 36.4 C L 05/14/23 05:57 Pulse Rate 78 05/14/23 05:57 Respiratory Rate 16 05/14/23 05:57 Blood Pressure 145/88 H 05/14/23 05:57 Pulse Oximetry 99 05/14/23 05:57 Oxygen Delivery Room Air 05/14/23 05:57 Temperature 36.4 C L 05/14/23 05:57 Pulse Rate 78 05/14/23 05:57 Respiratory Rate 16 05/14/23 05:57 Blood Pressure 145/88 H 05/14/23 05:57 Pulse Oximetry 99 05/14/23 05:57 Oxygen Delivery Room Air 05/14/23 05:57 Discharge Plan Discharge Clinical Impression: Dental abscess Patient Disposition: Home, Self-Care Condition: Stable Instructions: Antibiotic Form, Dental Abscess (ED) Prescriptions: New amoxicillin 500 mg capsule 500 mg PO Q12H Qty: 20 0RF ibuprofen 800 mg tablet 800 mg PO TID PRN (Reason: pain) Qty: 30 0RF No Action ketorolac 10 mg tablet 10 mg PO Q6H PRN (Reason: pain) 5 Days Qty: 20 0RF hydrocodone-acetaminophen 5-325 mg tablet 1 tablet PO Q6H PRN (Reason: pain) Qty: 10 0RF cephalexin 500 mg capsule 500 mg PO Q12H 5 Days Qty: 10 0RF moxifloxacin 0.5 % drops 1 drp LEFT EYE Q4-5H 5 Days Qty: 3 0RF
[2023-05-14] MEDS: HYDROcodone/acetaminophen (*CRX) 5-325 MG TABLET 1 TAB PO (06:39)
[2023-05-14] MEDS: AMOXICILLIN 500 MG CAPSULE PO (06:39)
[2023-05-14] MEDS: IBUPROFEN 400 MG TABLET 800 MG PO (06:41)
== END 2023-05-14 06:45 | disposition home or self-care (01) ==
LOC: ANHED 06:35
PROVIDERS: Emergency Provider Emergency Medicine
DX: K04.7 Periapical abscess without sinus (principal); F17.200 Nicotine dependence, unspecified, uncomplicated
CPT/HCPCS: 99283; A9270

== ENCOUNTER 2023-10-23 07:54 | Emergency (ER) | payer OTHER, SELFPAY ==
[2023-10-23 08:05] VITALS: BP 155/96; PULSE 87; RESP 16; TEMP 36.7; O2SAT 98
--- NOTE | 2023-10-23 08:47 | ED.DENTAL ---
HPI - Dental/Oral General Chief complaint: Dental/Oral Stated complaint: infection Time Seen by Provider: 10/23/23 08:45 Source: patient Mode of arrival: ambulatory Limitations: no limitations History of Present Illness HPI Narrative: Patient presents all of left lower jaw pain a of 2 days duration. He has had a previous dental infection here and notes that it had resolved but sometimes to have recurred. He notes that it started draining such that was felt running on his throat and now experiences a burning sensation with a sore throat any had a few episodes of emesis. He also feels left facial swelling with pressure and pain described as throbbing. Unknown if he has had a fever. He does not have a dentist. His mother is a diabetic and prone to infections so he took it no tablets of an unknown antibiotic yesterday at approximately 11:00 a.m.. He also had Advil yesterday at 7:00 a.m. for pain. Related Data Allergies Allergy/AdvReac Type Severity Reaction Status Date / Time No Known Allergies Allergy Verified 10/23/23 08:12 [facility] Past Medical History Medical History Dental infection 05/14/23 No active medical problems Family History Family History Mother Diabetes mellitus Social History Social History Smoking status: Current every day smoker Exam Narrative: GENERAL: Well-appearing, well-nourished, and in no acute distress. HEAD: Normocephalic, atraumatic. EYES: Non injected, non icteric ENT: Nares clear, no rhinorrhea or epistaxis. Mild facial asymmetry with some swelling overlying left jaw/mandible without associated fluctuance. No buccal mucosal induration or induration of cheek. No trismus. Uvula midline without deviation. Broken tooth. No tenderness to percussion. posterior oropharynx without erythema Or exudate. No tonsillar hypertrophy. No dysphonia. NECK: Supple. No lymphadenopathy. CHEST: Speaking in full sentences. No respiratory distress. HEART: Regular rate and rhythm. . ABDOMEN: Soft, nondistended. EXTREMITIES: Normal range of motion. No edema. SKIN: Warm, dry, no rash. NEURO: No focal deficits. Alert and oriented x3. PSYCH: Normal mood and affect. Course Vital Signs Vital signs: Vital Signs Temperature 98.0 F 10/23/23 08:05 Pulse Rate 87 10/23/23 08:05 Respiratory Rate 16 10/23/23 08:05 Blood Pressure 155/96 H 10/23/23 08:05 Pulse Oximetry 98 10/23/23 08:05 Oxygen Delivery Room Air 10/23/23 08:05 Temperature 98.0 F 10/23/23 08:05 Pulse Rate 87 10/23/23 08:05 Respiratory Rate 16 10/23/23 08:05 Blood Pressure 155/96 H 10/23/23 08:05 Pulse Oximetry 98 10/23/23 08:05 Oxygen Delivery Room Air 10/23/23 08:05 MDM - Dental/Oral MDM Narrative Medical decision making narrative: Patient presents with left lower jaw pain 2 days duration. He notes that he has a broken tooth that is previously been infected. EMR is reviewed and shows patient presented with the same in April 2023. He had not followed up with a dentist at that time but states symptoms improved. in the emergency department he is afebrile with vital signs that show hypertension. No induration or evidence of an abscess. Tooth non tender to pecussion. I suspect the infection is draining and causing the vomiting. Patient given p.o. analgesia as well as 1st dose of antibiotic. He will be discharged with the same. He is given a 1 time dose of steroid as this has been shown to improve times to symptom resolution of sore throat. patient is offered a dental nerve block but declines. He is provided resources for dentists in the area advised to follow-up with them and return to the emergency department for new or worsening symptoms. Discharged in stable condition. Differential Diagnosis Differen
[2023-10-23] MEDS: HYDROcodone/acetaminophen (*CRX) 5-325 MG TABLET 1 TAB PO (09:30)
[2023-10-23] MEDS: KETOROLAC 30 MG/ML VIAL (*BKC) 15 MG IM (09:31)
[2023-10-23] MEDS: AMOXICILLIN/CLAVULANATE K 875-125 MG TAB 1 TABLET PO (09:31)
[2023-10-23] MEDS: dexAMETHasone 2 MG TABLET 10 MG PO (09:50)
== END 2023-10-23 09:50 | disposition home or self-care (01) ==
PROVIDERS: Emergency Provider Student in an Organized Health Care Education/Training Program
DX: K04.7 Periapical abscess without sinus (principal); I10 Essential (primary) hypertension; F17.200 Nicotine dependence, unspecified, uncomplicated; Z79.899 Other long term (current) drug therapy
CPT/HCPCS: 96372; 99283; A9270; J1885; J8540

== ENCOUNTER 2024-09-26 14:18 | Emergency (ER) | payer OTHER, SELFPAY ==
--- NOTE | ~2024-09-26 | CT_ITS ---
EXAMINATION: CT brain wo con DATE: 09/26/2024 15:16 INDICATION: LEFT SCALP PAIN ON NUMBNESS . TECHNIQUE: Computed tomography (CT) of the head was performed without intravenous contrast. The mA wa s adjusted according to patient size. Iterative reconstruction technique was employed. The dose-lengt h product was 605.33 mGy-cm. COMPARISON: 04/15/2023. FINDINGS: No acute intracranial hemorrhage or extra-axial fluid collection. No hydrocephalus, mass, or herniation. No acute ischemic infarct. Unremarkable dural venous sinus attenuation. No acute osseous abnormality. The aerated spaces are clear. Left frontal encephalomalacia. IMPRESSION: No acute intracranial process. Reviewed, dictated and finalized at location K.
[2024-09-26 14:21] VITALS: BP 165/95; PULSE 70; RESP 16; TEMP 36.6; O2SAT 99
--- OUTSIDE RECORDS SUMMARY | 2024-09-26 14:21 | XMS_ITS | Clinical Summary ---
Author Organization [facility] Address [address] [place] [id number] Care Team Providers Care Motion Picture Camera Lens Technician Name Role Phone None, Provider MD Primary Care Provider Unavaila ble Allergies No known active allergies Medications No known medications Family History Medical History Relation Comments Diabetes Mother Relation Status Comments Father Mother Alive Social History Tobacco Use Types Packs/Day Years Used Date Smoking Tobacco: Every Day Cigarettes 0.5 10 Smokeless Tobacco: Never Alcohol Use Standard Drinks/Week Comments Yes 58.3 (1 standard drink = 0.6 oz pure alcohol) Sex and Gender Information Value Date Recorded Sex Assigned at Not on file Legal Sex Male 1:07 PM CDT Gender Identity Not on file Sexual Orientation Not on file Last Filed Vital Signs Vital Sign Reading Time Taken Comments Blood Pressure 120/66 11/05/2019 3:59 PM CDT Pulse 74 11/05/2019 3:59 PM CDT Temperature 37.3 C (99.1 F) 11/05/2019 1:10 PM CDT Respiratory Rate 18 11/05/2019 3:59 PM CDT Oxygen Saturation 99% 11/05/2019 3:59 PM CDT Inhaled Oxygen Concentration - - Weight 87.5 kg (193 lb) 11/05/2019 1:10 PM CDT Height 175.3 cm (5' 9 ) 11/05/2019 1:10 PM CDT Body Mass Index 28.5 11/05/2019 1:10 PM CDT Plan of Treatment Health Maintenance Due Date Last Done Comments Annual Physical 02/25/1988 Hepatitis C 2003 DTaP, Tdap and Td Vaccines ( 1 - Tdap) 02/25/2004 Hepatitis B Vaccines (1 of 3 - 19+ 3-dose series) 02/25/2004 COVID-19 Vaccine (2023-2 5 season) 2024 HPV Vaccines Aged Out No longer eligi ble based on patient's age to complete this topic Meningococcal B Vaccine Aged Out No l onger eligible based on patient's age to complete this topic Meningococcal Vaccine Aged Out No maria elena alma eligible based on patient's age to complete this topic Pneumococcal Vaccine: Pediat rics (0 to 5 Years) and At-Risk Patients (6 to 49 Years) Aged Out No longer eligible b ased on patient's age to complete this topic RSV Immunizations Under 20 Months Aged Out No longer eligible based on patient's age to complete this topic Care Teams Motion Picture Camera Lens Technician Relationship Specialty Start Date End Date None, Provider, PCP - General 11/05/19
--- OUTSIDE RECORDS SUMMARY | 2024-09-26 14:21 | XMS_ITS | Referral Summary ---
Author Organization [facility] Address [facility] [place] [address] Care Team Providers Care Records Management Manager Name Role Phone No, Physician Primary Care Provider [phone] Allergies No known active allergies Medications No known medications Active Problems Problem Noted Date Diagnosed Date Corneal rust ring of left eye 03/28/2021 Assessment & Plan (03/29/2021 1:16 PM CDT): Very small residual epi defect, decrease haze Stressed compliance with meds and risk of infection, loss of vision and or the eye Pt stated he would machine pecan picker drops today- finish antibiotic Will follow up locally with [facility] Will return with pain, photophobia Or decreased visual acuity ([place]) Assessment & Plan (03/28/2021 4:16 PM CDT): DC TETRACAINE Warned pt of toxicity of topical anesthetics Suspected glaucoma of both eyes 03/28/2021 Assessment & Plan (03/29/2021 1:15 PM CDT): Large CDR both eyes (OU) Borderline intraocular pressure (IOP) Ou Pt will get glaucoma eval with [facility] Assessment & Plan (03/28/2021 4:15 PM CDT): Large CDR both eyes (OU) Glaucoma eval after abrasion is healed Social History Tobacco Use Types Packs/Day Years Used Date Smoking Tobacco: Never Personal Safety Answer Date Recorded Getting School Help Needed Not on file 02/13 Sex and Gender Information Value Date Recorded Sex Assigned at Not on file Legal Sex Male 8:07 PM MAGNETIC RESONANCE IMAGING COORDINATOR Gender Identity Not on file Sexual Orientation Not on file Last Filed Vital Signs Vital Sign Reading Time Taken Comments Blood Pressure 153/108 01/21/2023 1:09 AM CDT Pulse 78 01/21/2023 1:09 AM CDT Temperature 37.1 C (98.7 F) 01/21/2023 1:09 AM CDT Respiratory Rate 16 01/21/2023 1:09 AM CDT Oxygen Saturation 100% 01/21/2023 1:09 AM CDT Inhaled Oxygen Concentration - - Weight 91.2 kg (201 lb) 01/21/2023 1:09 AM CDT Height 175.3 cm (5' 9 ) 01/21/2023 1:09 AM CDT Body Mass Index 29.68 01/21/2023 1:09 AM CDT Plan of Treatment Not on file Insurance [facility] [facility] [facility] A[facility]NA [facility] Care Teams Records Management Manager Relationship Specialty Start Date End Date No, Physician PCP - General 03/26/21
--- OUTSIDE RECORDS SUMMARY | 2024-09-26 14:21 | XMS_ITS | Clinical Summary ---
Author Organization [facility] Address [facility] [place] [address] Care Team Providers Care Hand Trimmer Name Role Phone No, Physician Primary Care Provider [phone] Allergies No known active allergies Medications No known medications Active Problems Problem Noted Date Diagnosed Date Corneal rust ring of left eye 03/28/2021 Assessment & Plan (03/29/2021 1:16 PM CDT): Very small residual epi defect, decrease haze Stressed compliance with meds and risk of infection, loss of vision and or the eye Pt stated he would hop picker drops today- finish antibiotic Will follow up locally with [facility] Will return with pain, photophobia Or decreased visual acuity ([place]) Assessment & Plan (03/28/2021 4:16 PM CDT): DC TETRACAINE Warned pt of toxicity of topical anesthetics Suspected glaucoma of both eyes 03/28/2021 Assessment & Plan (03/29/2021 1:15 PM CDT): Large CDR both eyes (OU) Borderline intraocular pressure (IOP) Ou Pt will get glaucoma eval with [facility] Assessment & Plan (03/28/2021 4:15 PM CDT): Large CDR both eyes (OU) Glaucoma eval after abrasion is healed Social History Tobacco Use Types Packs/Day Years Used Date Smoking Tobacco: Never Personal Safety Answer Date Recorded Getting School Help Needed Not on file 02/13 Sex and Gender Information Value Date Recorded Sex Assigned at Not on file Legal Sex Male 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 Gender Identity Not on file Sexual Orientation Not on file Obstetrics History Last Filed Vital Signs Vital Sign Reading [...] 01/21/2023 1:09 AM CDT Plan of Treatment Health Maintenance Due Date Last Done Comments Depression Screening 1985 Hepatitis C Screening 1985 Varicella Vaccines (1 of 2 - 13+ 2-dose series) 1998 Regular Well Visit/Exam 18-64 2003 Influenza Vaccine (#1) 2024 DTaP/Tdap/Td Vaccine (4 - Td or Tdap) 03/21/2031 03/21/2021, 06/20/2016, 01/31/1993 Hepatitis B Screening Completed 10/21/1996 , 07/01/1996, 05/13/1996 HPV Vaccines Aged Out No longer eligi ble based on patient's age to complete this topic Pneumococcal vaccine <65 Aged Out No longer eligible based on patient's age to complete this topic Insurance [facility] Care Teams Hand Trimmer Relationship Specialty Start Date End Date No, Physician PCP - General 03/26/21
--- NOTE | 2024-09-26 14:38 | ED.GENADULT ---
HPI - General Adult General Chief complaint: Unspecified Stated complaint: hemorrhoids bleeding and thick saliva Time Seen by Provider: 09/26/24 14:38 Source: patient Mode of arrival: ambulatory Limitations: no limitations History of Present Illness HPI narrative: 39 YEARS OLD WHITE MALE CAME TO THE ED COMPLAINING OF INTERMITTENT HEMORRHOID BLEEDING 4 WEEKS, NO ANAL PAIN RIGHT SUPRAPUBIC LUMP 4 WEEKS, NONTENDER NUMBNESS AND PAIN AT THE LEFT SIDE OF THE HEAD FOR YEARS WAS TOLD BY A PHYSICIAN IN THE PAST THAT HE HAVE SPOT ON THE BRAIN AT THAT AREA. PATIENT REPORT THE SYMPTOM IS GETTING WORSE. DENIES ANY FEVER CHILLS NAUSEA VOMITING Related Data Allergies Allergy/AdvReac Type Severity Reaction Status Date / Time No Known Allergies Allergy Verified 09/26/24 14:21 Review of Systems Review of Systems: All systems reviewed & are unremarkable except as noted in HPI and below PMFSH Past Medical History Medical History Dental infection 05/14/23 No active medical problems Family History Family History Mother Diabetes mellitus Social History Social History Smoking status: Current every day smoker Exam Narrative: GENERAL APPEARANCE: WELL-DEVELOPED, WELL-NOURISHED SKIN: NORMAL COLOR HEAD: NORMOCEPHALIC, NONTRAUMATIC EYES: CLEAR CONJUNCTIVA ENT: OROPHARYNX NORMAL, EARS NORMAL, NOSE NORMAL NECK: SUPPLE, NONTENDER CHEST AND RESPIRATORY: AIRWAY PATENT, NO RESPIRATORY DISTRESS, NO ACCESSORY MUSCLE USE HEART: REGULAR RATE/RHYTHM ABDOMEN: SOFT, NONTENDER, NO ORGANOMEGALY, QUIET BOWEL SOUNDS, AND SMALL RIGHT INGUINAL HERNIA, REDUCIBLE, NONTENDER ANAL EXAM SHOWED SMALL HEMORRHOIDS, NO ACTIVE BLEEDING, NO MASS. VASCULAR: NORMAL PERIPHERAL PULSES, NORMAL CAPILLARY REFILL. MUSCULOSKELETAL: NORMAL RANGE OF MOTION, NONTENDER BACK NEUROLOGIC: ALERT AND ORIENTED ?3, ENTER[employer] PLANNER IS NORMAL TESTED, NO GROSS MOTOR DEFICIT Course Vital Signs Vital signs: Vital Signs Temperature 36.6 C 09/26/24 14:21 Pulse Rate 70 09/26/24 14:21 Respiratory Rate 16 09/26/24 14:21 Blood Pressure 165/95 H 09/26/24 14:21 Pulse Oximetry 99 09/26/24 14:21 Oxygen Delivery Room Air 09/26/24 14:21 Temperature 36.6 C 09/26/24 14:21 Pulse Rate 70 09/26/24 14:21 Respiratory Rate 16 09/26/24 14:21 Blood Pressure 165/95 H 09/26/24 14:21 Pulse Oximetry 99 09/26/24 14:21 Oxygen Delivery Room Air 09/26/24 14:21 Medical Decision Making MDM Narrative Medical decision making narrative: PATIENT CAME WITH MULTIPLE SYMPTOMS VITAL SIGNS SHOWING BLOOD PRESSURE 165/95, PATIENT IS NOT ON ANY MEDICINE, DOES NOT HAVE A FAMILY PHYSICIAN PHYSICAL EXAM SHOWING RIGHT INGUINAL HERNIA, HEMORRHOIDS, OTHERWISE INSIGNIFICANT DIFFERENTIAL DIAGNOSIS INCLUDE RECTAL BLEEDING, RIGHT INGUINAL HERNIA, INTRACRANIAL PATHOLOGY, PARESTHESIA BLOOD WORKUP TODAY INCLUDES CBC, CMP, SHOWED NO SIGNIFICANT ABNORMALITIES CT HEAD WITHOUT CONTRAST SHOWED NO SIGNIFICANT ABNORMALITIES DIAGNOSIS RIGHT INGUINAL HERNIA, HEMORRHOIDS AND PARESTHESIA DISCHARGE ON ANUSOL HC, TYLENOL, IBUPROFEN NEEDED, FOLLOW-UP WITH SURGERY. Differential Diagnosis Differential Diagnosis: ABOVE Vital Signs Vital Signs: Vital Signs Temperature 36.6 C 09/26/24 14:21 Pulse Rate 70 09/26/24 14:21 Respiratory Rate 16 09/26/24 14:21 Blood Pressure 165/95 H 09/26/24 14:21 Pulse Oximetry 99 09/26/24 14:21 Oxygen Delivery Room Air 09/26/24 14:21 Temperature 36.6 C 09/26/24 14:21 Pulse Rate 70 09/26/24 14:21 Respiratory Rate 16 09/26/24 14:21 Blood Pressure 165/95 H 09/26/24 14:21 Pulse Oximetry 99 09/26/24 14:21 Oxygen Delivery Room Air 09/26/24 14:21 Lab Data 09/26/24 15:31 09/26/24 15:31 Labs: Lab Results 09/26/24 Range/Units 15:31 WBC 5.4 (4.5-10.0) K/mm3 RBC 5.04 (4.6-6.20) M/mm3 Hgb 15.4 (14.0-18.0) g/dL Hct 48.0 (42.0-52.0) % MCV 95.2 (80-100) fl MCH 30.6 (26-34) pg MCHC 32.1 (32-36) g/dl RDW 12.6 (11.5-14.5) % Plt Count 231 (150-375) k/mm3 MPV 10.9 H (7.4-10.4) fl Immature Gran % (Auto) 0.6 H (0-0.5) % Neut % (Auto) 50.7 (45.5-73.1) % Lymph % (Auto) 27.1 (18.3-44.2) % [place] % (Auto) 15.3 H (2.6-8.5) % Eos % (Auto) 5.2 H (0-4.4) % Baso % (Auto) 1.1 (0.2-1.2) % Lymph # (Auto) 1.47 (0.9-3.2) K/mm3 [place] # (Auto) 0.8 H (0.1-0.6) K/mm3 Eos # (Auto) 0.3 (0-0.3) K/mm3 Baso # (Auto) 0.1 (0.0-0.1) K/mm3 Abs Immat Gran (auto) 0.03 (0.00-0.031) K/mm3 Absolute Neuts (auto) 2.8 (1.3-6.7) K/mm3 Absolute Nucleated RBC 0.000 (0.0-0.012) K/mm3 Nucleated RBC % 0.0 (0.0-0.2) % Sodium 138 (137-145) mmol/L Potassium 4.2 (3.4-5.0) mmol/L Chloride 106 (98-107) mmol/L Carbon Dioxide 22 (22-30) mmol/L Anion Gap 10 (4-12) mmol/L BUN 16 (9-20) mg/dL Creatinine 0.86 (0.7-1.3) mg/dL Estim Creat Clear Calc Not Reportable Estimated GFR > 60 (59 - ) Glucose 85 (65-110) mg/dL Calcium 8.8 (8.4-10.2) mg/dL Total Bilirubin 0.7 (0.2-1.3) mg/dL AST 35 (17-59) U/L ALT 38 (6-50) U/L Alkaline Phosphatase 48 (38-126) U/L Total Protein 8.0 (6.3-8.2) g/dL Albumin 4.6 (3.5-5.1) g/dL Imaging Data Radiologist's impression: Impressions Head CT 09/26/24 15:18 IMPRESSION: No acute intracranial process. Critical Care Time Critical Care Time Critical Care Time: No Discharge Plan Discharge Clinical Impression: Inguinal hernia, Hemorrhoid, Paresthesia Patient Disposition: Home Condition: Stable Additional Instructions: RETURN IF SYMPTOMS ARE WORSENING , CALL DR ARMAS FOR APPOINTMENT, TAKE TYLENOL NEEDED FOR ACHES AND PAIN, CONTINUE HOME MEDICATIONS. Patient Language: Kazakh Prescriptions: New hydrocortisone acetate [Anusol-HC] 25 mg suppository 25 mg RECTAL BID Qty: 20 0RF No Action ketorolac 10 mg tablet 10 mg PO Q6H PRN (Reason: pain) 5 Days Qty: 20 0RF hydrocodone-acetaminophen 5-325 mg tablet 1 tablet PO Q6H PRN (Reason: pain) Qty: 10 0RF cephalexin 500 mg capsule 500 mg PO Q12H 5 Days Qty: 10 0RF moxifloxacin 0.5 % drops 1 drp LEFT EYE Q4-5H 5 Days Qty: 3 0RF moxifloxacin 0.5 % drops 1 drp LEFT EYE Q4-5H 7 Days Qty: 3 0RF moxifloxacin 0.5 % drops 1 drp LEFT EYE Q4-5H 7 Days Qty: 3 0RF methocarbamol 750 mg tablet 750 mg PO TID Qty: 21 0RF amoxicillin 500 mg capsule 500 mg PO Q12H Qty: 20 0RF ibuprofen 800 mg tablet 800 mg PO TID PRN (Reason: pain) Qty: 30 0RF amoxicillin-pot clavulanate [Augmentin] 500-125 mg tablet 1 tablet PO Q12H 10 Days Qty: 20 0RF acetaminophen 500 mg capsule 1,000 mg PO Q6H PRN (Reason: pain) Qty: 30 0RF Follow-up/Referrals: Porfirio Davalos MD [Physician] - 09/30/24 UNKNOWN,DOCTOR [Primary Care Provider] - Hilario Armas MD [Physician] - 09/30/24
--- OUTSIDE RECORDS SUMMARY | 2024-09-26 14:59 | XMS_ITS | Referral Summary ---
Author Organization [facility] Address [facility] [place] [address] Care Team Providers Care Rn Eligibility Name Role Phone No, Physician Primary Care Provider [phone] Allergies No known active allergies Medications No known medications Active Problems Problem Noted Date Diagnosed Date Corneal rust ring of left eye 03/28/2021 Assessment & Plan (03/29/2021 1:16 PM CDT): Very small residual epi defect, decrease haze Stressed compliance with meds and risk of infection, loss of vision and or the eye Pt stated he would bead picker drops today- finish antibiotic Will follow up locally with [facility] Will return with pain, photophobia Or decreased visual acuity (VA) Assessment & Plan (03/28/2021 4:16 PM CDT): DC TETRACAINE Warned pt of toxicity of topical anesthetics Suspected glaucoma of both eyes 03/28/2021 Assessment & Plan (03/29/2021 1:15 PM CDT): Large CDR both eyes (OU) Borderline intraocular pressure (IOP) Ou Pt will get glaucoma eval with [facility] Assessment & Plan (03/28/2021 4:15 PM CDT): Large CDR both eyes (OU) Glaucoma eval after abrasion is healed Social History Tobacco Use Types Packs/Day Years Used Date Smoking Tobacco: Never Personal Safety Answer Date Recorded Getting School Help Needed Not on file 02/13 Sex and Gender Information Value Date Recorded Sex Assigned at Not on file 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
--- OUTSIDE RECORDS SUMMARY | 2024-09-26 14:59 | XMS_ITS | Clinical Summary ---
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- finish antibiotic Will follow up locally with [facility] Will return with pain, photophobia Or decreased visual acuity (VA) Assessment & Plan (03/28/2021 4:16 PM CDT): DC TETRACAINE Warned pt of toxicity of topical anesthetics Suspected glaucoma of both eyes 03/28/2021 Assessment & Plan (03/29/2021 1:15 PM CDT): Large CDR both eyes (OU) Borderline intraocular pressure (IOP) Ou Pt will get glaucoma eval with [facility] Assessment & Plan (03/28/2021 4:15 PM CDT): Large CDR both eyes (OU) Glaucoma eval after abrasion is healed Social History Tobacco Use Types Packs/Day Years Used Date Smoking Tobacco: Never Personal Safety Answer Date Recorded Getting School Help Needed Not on file 02/13 Sex and Gender Information Value Date Recorded Sex Assigned at Not on file 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
--- OUTSIDE RECORDS SUMMARY | 2024-09-26 14:59 | XMS_ITS | Clinical Summary ---
Author Organization [facility] Address [address] [place] [id number] Care Team Providers Care Business Intelligence Administrator Name Role Phone None, Provider MD Primary [...] age to complete this topic Care Teams Business Intelligence Administrator Relationship Specialty Start Date End Date None, Provider, PCP - General 11/05/19
[2024-09-26 15:36] LABS: Basophils Absolute Auto 0.1 K/mm3 (0.0-0.1); Basophils Percent Auto 1.1 % (0.2-1.2); Eosinophils Absolute Auto 0.3 K/mm3 (0-0.3); Eosinophils Percent Auto 5.2 % (0-4.4); Hemoglobin 15.4 g/dL (14.0-18.0); Immature Granulocyte Absolute 0.03 K/mm3 (0.00-0.031); Immature Granulocyte Percent A 0.6 % (0-0.5); Lymphocytes Absolute Auto 1.47 K/mm3 (0.9-3.2); Lymphocytes Percent Auto 27.1 % (18.3-44.2); Mean Corpuscular HGB Conc 32.1 g/dl (32-36); Mean Corpuscular Hemoglobin 30.6 pg (26-34); Mean Corpuscular Volume 95.2 fl (80-100); Mean Platelet Volume 10.9 fl (7.4-10.4); Monocytes Absolute Auto 0.8 K/mm3 (0.1-0.6); Monocytes Percent Auto 15.3 % (2.6-8.5); Neutrophils Absolute Auto 2.8 K/mm3 (1.3-6.7); Neutrophils Percent Auto 50.7 % (45.5-73.1); Platelet Count Result 231 k/mm3 (150-375); Red Blood Count 5.04 M/mm3 (4.6-6.20); Red Cell Distribution Width 12.6 % (11.5-14.5); White Blood Count 5.4 K/mm3 (4.5-10.0)
[2024-09-26 15:45] LABS: Alanine Aminotransferase 38 U/L (6-50); Albumin Level 4.6 g/dL (3.5-5.1); Alkaline Phosphatase 48 U/L (38-126); Anion Gap 10 mmol/L (4-12); Aspartate Amino Transferase 35 U/L (17-59); Bilirubin,Total 0.7 mg/dL (0.2-1.3); Blood Urea Nitrogen 16 mg/dL (9-20); Calcium 8.8 mg/dL (8.4-10.2); Carbon Dioxide 22 mmol/L (22-30); Chloride 106 mmol/L (98-107); Estimated Glomerular Filt Rate > 60; Glucose 85 mg/dL (65-110); Potassium 4.2 mmol/L (3.4-5.0); Sodium 138 mmol/L (137-145)
[2024-09-26 17:01] VITALS: BP 148/88; PULSE 72; RESP 16; TEMP 36.6; O2SAT 99
== END 2024-09-26 17:02 | disposition home or self-care (01) ==
PROVIDERS: Emergency Provider Emergency Medicine
DX: K40.90 Unilateral inguinal hernia, without obstruction or gangrene, not specified as recurrent (principal); K64.9 Unspecified hemorrhoids; R20.2 Paresthesia of skin; F17.200 Nicotine dependence, unspecified, uncomplicated
CPT/HCPCS: 36415; 70450; 80053; 85025; 99284

== ENCOUNTER 2024-11-20 11:24 | Outpatient (CLI) | payer OTHER, SELFPAY | END 2024-11-20 11:25 | disposition home or self-care (01) | PROVIDERS: Visit Provider Anesthesiology | DX: K40.90 Unilateral inguinal hernia, without obstruction or gangrene, not specified as recurrent (principal); Z01.818 Encounter for other preprocedural examination | CPT/HCPCS: 36415; 86850; 86900; 86901 ==

== ENCOUNTER 2024-11-22 01:35 | Day surgery (SDC) | payer OTHER, SELFPAY ==
--- NOTE | 2024-11-16 14:52 | SUR.PREOP ---
Report to the Outpatient Waiting Room, entrance under the green pavilion located off [facility], at time ____599___ on date ___11/22/24____. Planned Procedure Time: ____729____.? Time changes happen often and if your time is changed the preop area will call you the afternoon before. - You and your visitor will be asked to self-screen and do not enter if you have any COVID symptoms. Please call surgeon if you need to reschedule. - A mask is optional within the hospital at this time. Patients may have clear liquids (water, carbonated beverages, clear teas, apple juice) until 3 hours prior to surgery with a maximum of 20 ounces. - NO CLEAR LIQUIDS AFTER 0430 - No food from midnight until time of surgery and no smoking, or chewing tobacco (or any form of nicotine). No chewing gum, candy or mints. - Infants may have breast milk until 4 hours before surgery, infant formula 6 hours prior to surgery. - Children will be allowed to drink immediately following surgery.? If applicable, please bring a bottle or sippy cup to assist with drinking. Juice, water, soda, and popsicles are readily available.? For infants on formula, please bring formula the day of surgery.? Pacifiers are allowed. Take only the following medications with a SIP of water on the morning of surgery: N/A DO NOT STOP ANY OF YOUR OTHER PRESCRIPTION MEDICATIONS PRIOR TO SURGERY EXCEPT THE FOLLOWING Hold all vitamins and supplements for 3 days per anesthesiologist. Medications to discontinue per physician N/A Date to take last dose Please no make-up, nail mozambican, hairspray, perfume, deodorant, or body powder the day of surgery.? No jewelry (including any body piercings) or valuables the day of surgery, leave them at home.? Please take a shower or bath the night before, or the morning of, surgery with an antibacterial soap.? Wear comfortable, loose fitting clothing.? Children are encouraged to wear pajamas. - Jewelry must be removed prior to entering the operating room.? Rings and piercings that are not removed may be cut off. - The hospital will not accept responsibility for valuables.? - Please leave all valuables, including medications, at home the day of surgery. If you are going home after surgery, a licensed dumpcart driver must drive you home.? - NO public transportation without another adult if you receive anesthesia. - We recommend that an adult stay with you for 24 hours following discharge. - We also recommend that you do not drive, make important decision, drink alcoholic beverages, or take any drugs that were not prescribed by your health care provider for at least 24 hours after your discharge time. For Pediatric surgeries, we recommend two adults accompany the child home. Follow any additional instructions given to you from your surgeon. Telephone instructions given to BOB PHAN and asked if any additional questions and then verbalized understanding. Patient advised to call surgeon office or pre surgery nurse liaison [phone] if any additional questions.
[2024-11-16 15:10] VITALS: BMI 32.7
[2024-11-22] VITALS (10 sets, daily range): BP systolic 108–151; BP diastolic 64–101; PULSE 60–85; RESP 12–18; TEMP 36.7–36.9; O2SAT 97–100
[2024-11-22] MEDS: ACETAMINOPHEN 500 MG TABLET 1000 MG PO (06:24)
[2024-11-22] MEDS: LACTATED RINGERS 1,000 ML 30 ML IV CONT ×3 (06:30→10:22)
[2024-11-22] MEDS: KETOROLAC 15 MG/ML VIAL (*BKC) IV PUSH ×2 (06:31→09:06)
--- NOTE | 2024-11-22 06:57 | P.PNAN_ITS ---
Anes - Initial Pre Proc Eval Procedure: Operation Date: 11/22/24 07:30 Proposed Procedures p Robotic Assisted Laparoscopic Right Inguinal Hernia Repair with Mesh, Possible Open - Hilario Krueger MD Date/Time: 11/22/24 06:57 Surgeon: Hilario Krueger MD Pre Op Diagnosis: Reducible rt Ing Hernia Patient Data Age: 39 Gender: M Height: 1.73 m Weight: 97.7 kg Allergies Allergy/AdvReac Type Severity Reaction Status Date / Time omeprazole Allergy Severe Swelling Verified 11/22/24 06:09 of Lip/Tongue/Throat Home Medications ?Medication ?Instructions ?Recorded ?Confirmed ?Type No Home Medications 11/16/24 11/16/24 History Patient hx anesthesia problems: none Family hx anesthesia problems: none Results Review: All pre-operative results and documents have been reviewed as part of the pre- operative evaluation. FOR[facility]LY [facility] Past Medical History Medical History (Updated 11/22/24 @ 06:58 by Jamal Ann MD) Smoker Obesity Asthma Dental infection 05/14/23 Family History Family History Mother Diabetes mellitus Hypertension Heart disease Grandparent Hypertension Social History Social History (Updated 11/22/24 @ 06:58 by Jamal Ann MD) Smoking packs per day: 1 Smoking cigarettes per day: 20.0 Years smoked: 10 Smoking pack-years: 10.00 Smoking status: Current every day smoker Tobacco type: cigarettes Current Housing: Decline to Answer Concerned About Future Housing: Decline to Answer Difficulty Paying Gas/Electric Bills: Decline to Answer Difficulty Paying for Meds: Decline to Answer Currently Unemployed: Decline to Answer Education: Decline to Answer Difficulty w/ Childcare or Family Care: Decline to Answer Living arrangements: with family Spiritual care concerns: No Anes - Eval Final PreProcedure Day of Procedure 11/22/24 06:57 Patient weight: obese Heart: regular rate and rhythm Lungs: clear to auscultation Airway: Mallampati scale class II Neurological: alert and oriented Last oral intake: >/= 8 hours ASA classification: II Emergent: no Anesthetic plan: proceed Anesthesia type and monitoring: general ETT and standard monitoring Results Review: All pre-operative results and documents have been reviewed as part of the pre- operative evaluation. Informed Consent: The patient's anesthetic plan and its attendant risks and benefits were discussed with the patient/family/POA. Questions were solicited and answers provided to the satisfaction of the patient/family/POA.
--- NOTE | 2024-11-22 07:18 | WPDHPUPDATE1 ---
History and Physical Update Update Date/Time: 11/22/24 07:18 History and Physical has been reviewed, including an updated exam of the patient. There are NO changes in the patient's condition. Risks, benefits, and alternatives have been discussed and questions answered. Patient agrees to proceed with procedure.
--- NOTE | 2024-11-22 07:19 | PM.IMHP ---
H&P: HPI History of Present Illness Date/Time: 11/22/24 07:19 Chief Complaint: Right inguinal hernia, hemorrhoids Narrative: Justen is a 39 y/o male who presents to the office for a follow up after recent OA visit on 09/26/24. Patient presented to [facility] with complaint of a bulge in the right groin area along with rectal bleeding and pain from hemorrhoids. Patient reports he was prescribed suppositories and that seems to have relieved his rectal pain. He denies more rectal bleeding. He states the bulge has been present for 3-4 weeks, is reducible and causing discomfort with activity. Review of Systems Review of Systems: The remainder of the review of systems to include constitutional, HEENT, cardiovascular, respiratory, GI, , integumentary, musculoskeletal, endocrine, immunologic, hematologic, psychiatric, and neurologic are all negative except for which is mentioned above in the HPI. REPLACED BY [facility] Past Medical History Medical History Smoker Obesity Asthma Dental infection 05/14/23 Family History Family History Mother Diabetes mellitus Hypertension Heart disease Grandparent Hypertension Social History Social History Smoking packs per day: 1 Smoking cigarettes per day: 20.0 Years smoked: 10 Smoking pack-years: 10.00 Smoking status: Current every day smoker Tobacco type: cigarettes Current Housing: Decline to Answer Concerned About Future Housing: Decline to Answer Difficulty Paying Gas/Electric Bills: Decline to Answer Difficulty Paying for Meds: Decline to Answer Currently Unemployed: Decline to Answer Education: Decline to Answer Difficulty w/ Childcare or Family Care: Decline to Answer Living arrangements: with family Spiritual care concerns: No Meds Home Medications and Allergies Home Medications ?Medication ?Instructions ?Recorded ?Confirmed ?Type No Home Medications 11/16/24 11/16/24 History Allergies Allergy/AdvReac Type Severity Reaction Status Date / Time omeprazole Allergy Severe Swelling Verified 11/22/24 06:09 of Lip/Tongue/Throat Exam Const: General: comfortable and no acute distress HENMT: Ears: TM's normal bilaterally Face/Nose/Sinus: Normal nares present Mouth: Yes moist mucous membranes Eyes: General: appearance normal, both eyes and all related structures Sclera: sclerae normal Pupils: Equal, round and reactive pupils present EOM: EOMs intact bilaterally Neck: Neck: supple and no JVD Resp: Effort & Inspection: normal respiratory effort Auscultation: clear to auscultation bilaterally Cardio: Rate: regular rate Rhythm: regular rhythm GI: GI Palp: Yes Soft to palpation, No Firmness to palpation present (GI), No Tenderness to palpation present (GI), No Guarding due to palpation present (GI) and No Hernia present Other: Minor grade II left lateral internal hemorrhoids, non bleeding, non thrombosed. : Other: Small to moderate reducible right inguinal hernia, minimal tenderness. Bilateral testes without masses. No evidence of left inguinal hernia. Skin: General skin exam: normal color and no rashes or lesions noted Neuro: General: gait normal Speech: normal speech Motor exam (neuro): 5/5 motor strength present throughout Sensory Exam: normal sensation Extrem: General: normal to inspection Psych: Mental Status: mental status grossly normal Affect: normal affect Assessment and Plan Assessment and plan (1) Reducible right inguinal hernia: Code(s): K40.90 - Unilateral inguinal hernia, without obstruction or gangrene, not specified as recurrent Status: Acute Assessment and Plan: I have reviewed OAER notes from 09/26/24 prior to patient visit today. Clinical exam reveals a moderate right inguinal hernia. I recommend patient undergo a robotic assisted laparoscopic right inguinal hernia repair with mesh to be done under general anesthesia as an outpatient. Due to patient insurance, I informed him of the pre-certification process to have this procedure done here. The procedure was discussed in detail including the use of mesh, general description, and usual course of recovery. Risks of recurrence, infection, postop bleeding, prolonged postop pain, possible need to return to surgery were discussed as well. All questions were answered. Patient would like to proceed. Follow-up 2 weeks postoperatively.
[2024-11-22] MEDS: ceFAZolin 2 GM/D5W 50 ML 2 GM/50 ML BAG IVPB (07:29)
[2024-11-22] MEDS: BUPivacaine HCL 0.5% 10 ML AMP 30 ML INFILTRATE (08:08)
[2024-11-22] MEDS: LIDO 1%/EPINEPHRINE 1:100,000 20 ML VIAL 30 ML INFILTRATE (08:09)
--- NOTE | 2024-11-22 09:57 | W.PM.PROC2 ---
Procedure Note - Detailed Date of Procedure 11/22/24 Pre-op Diagnosis Reducible rt Ing Hernia Post-op Diagnosis Same Procedure Performed Robotic assisted laparoscopic right inguinal hernia repair with Bard 3D mid weight mesh Surgeon Hilario Krueger MD Early Childhood Education Instructor Monse Roman RN FA Anesthesia General Indications Patient is a 39-year-old male who presented with pain in the right groin region associated with a palpable bulge. The bulge had been enlarging become more symptomatic. Presents now for a robotic assisted laparoscopic right inguinal hernia repair with mesh. Findings Patient had a moderately large reducible indirect right inguinal hernia. No incarcerated contents. No evidence of a left inguinal hernia on upon viewing of the left groin region intraoperatively. Description of Procedure After informed consent was obtained patient was brought to the operating room was placed supine position and general endotracheal anesthesia was administered. The abdomen and bilateral groins was then prepped draped usual sterile fashion. A time-out was then performed correctly identifying the patient as well as procedure to be performed. He was given perioperative IV antibiotics. Site marking was verified on the right side. I then proceeded to enter the abdomen left upper quadrant utilizing a 5mm Optiview port. Once inside the abdomen insufflated to adequate pneumoperitoneum of 15mmHg CO2. Viewing the periumbilical region the pelvis there were no adhesions to obscure my view of the right groin region. Additional robotic trocar ports placed across the mid abdomen. This included an 8mm periumbilical trocar port and then 8mm trocar ports on the left and right abdomen. The 5mm left upper quadrant trocar port was switched out to a 10mm bedside membership assistant trocar port. There [employer] [facility] robot was then brought to the patient's bedside and docked to the patient's right side. The robotic arms were then attached robotic ports. I then advanced robotic instruments into the abdomen under direct visualization. I then scrubbed out the procedure sent down at the console to perform the dissection. I 1st started by creating a preperitoneal flap starting the right lower quadrant of the abdomen and extending it across the lower abdomen to across the right median umbilical ligament. Ice continued dissection is preperitoneal plane distally and identified the inferior epigastric vessels. The hernia was an indirect inguinal hernia as it was lateral to the inferior epigastric vessels and extended into the internal ring into the inguinal canal. I then dissected medially down to the pubic tubercle and then dissected down into the space of Retzius for couple cm. I then dissected out a cord lipoma and reduced the indirect inguinal hernia sac out of the inguinal canal. The vas deferens and testicular vessels were identified preserved without injury. I dissected the hernia sac proximally up onto the psoas muscle and the vas deferens and testicular vessels divided and . Once I felt that I had enough of the peritoneum dissected up onto the peritoneum to allow placement of mesh without rolling up the mesh to close the peritoneum I then chose a piece of Bard 3D mid weight mesh measuring [id number] for the repair. It was oriented for the right side. It was placed through the bedside membership assistant 10mm trocar port site and then placed into the abdomen. I then placed into the dissected space covering the home myopectineal orifice. It cover the indirect space as well as the direct space and femoral space. This mesh was then secured at the pubic tubercle with 2-0 Vicryl suture placed robotically. Another 2-0 Vicryl sutures placed laterally anterior medial to the right anterior superior iliac spine. A 3rd suture was then placed to approximate the mesh to the on transversalis fascia at the direct space. The mesh laid out very nicely without any tension. I then proceeded to close the peritoneal flap. This is done with a running 2-0 absorbable V lock suture to approximate the edges. The hernia sac was tacked up with the closure of the flap. There were no holes made in the peritoneum. At this point all the viscera was excluded from the mesh by the peritoneum. I then checked and there was no bleeding from the incisions. All the bowel appeared to be normal. I then proceeded to have all the instruments removed from the abdomen and the robot undocked from the patient's bedside. I then scrubbed back in the procedure proceeded to close the 8mm periumbilical trocar port site and the 10mm left upper quadrant trocar port utilizing a suture Passer and 0 Vicryl suture at the fascial level laparoscopically. Once this was done I then irrigated all the port sites sterile saline solution hemostasis was good. I then injected around the incisions with 1% lidocaine mixed with 0.5% Marcaine with some epinephrine. The skin edges in all the port sites were then closed utilizing a running subcuticular 4-0 Monocryl suture. The incisions were then cleaned the skin glue was applied. The patient tolerated the procedure well no complications. All sponges, needles, and instrument counts were correct at the end procedure. EBL was _20__cc. The patient was awakened and taken to recovery in stable and satisfactory condition. Implants Bard 3D mid weight mesh oriented for right side [id number] Estimated Blood Loss 20 Drains No Packing No Pathology None sent Complications No immediate complications Condition Stable Disposition PACU [facility] Billing Surgery - Charge Forward: Surgery Billing
[2024-11-22] MEDS: diphenhydrAMINE HCl INJ 50 MG/ML VIAL 25 MG IV PUSH (10:02)
[2024-11-22] MEDS: fentaNYL CITRATE INJ (*CRX) 100 MCG/2 ML VIAL 25 MCG IV PUSH ×4 (10:07→10:19)
== END 2024-11-22 12:15 | disposition home or self-care (01) ==
PROVIDERS: Visit Provider Surgery
PROC: 8E0Y4CZ Robotic Assisted Procedure of Lower Extremity, Percutaneous Endoscopic Approach (ICD-10-PCS; CPT 49650; principal; 2024-11-22 07:30)
DX: K40.90 Unilateral inguinal hernia, without obstruction or gangrene, not specified as recurrent (principal); F17.210 Nicotine dependence, cigarettes, uncomplicated
CPT/HCPCS: 49650; S2900; A9270; C1781; J0690; J1100; J1171; J1200; J1885; J2004; J2250; J2405; J2704; J3010; J7030; J7120

== ENCOUNTER 2025-01-20 16:22 | Emergency (ER) | payer OTHER, SELFPAY ==
--- NOTE | ~2025-01-20 | CT_ITS ---
EXAMINATION: CT abdomen pelvis wo laura, 01/20/2025 17:25 CDT HISTORY: RLQ pain and pain of right buttock COMPARISON: No comparisons available. TECHNIQUE: CT scan of the abdomen and pelvis was performed without IV contrast. One or more of the following dose reduction techniques were used: automated exposure control, adjustment of the mA and/or kV according to patient size, use of iterative reconstruction technique. Unless otherwise stated, incidental findings do not require dedicated follow up imaging FINDINGS: CT abdomen: LUNG BASES: The lung bases demonstrate large calcified granuloma left lower lobe. LIVER: Unremarkable, liver contours intact, no lesions. SPLEEN: Punctate calcified probable splenic granulomas.. KIDNEYS: Right Kidney: Unremarkable. No calculi. No hydronephrosis. Left Kidney: Unremarkable. No calculi. No hydronephrosis ADRENAL GLANDS: Unremarkable. PANCREAS: Unremarkable. GALLBLADDER/BILIARY: Unremarkable. No biliary dilatation. STOMACH AND ESOPHAGUS: Minimal thickening of the esophagus may relate to mild esophagitis. BOWEL/MESENTERY: Moderate fecal content, no colitis or diverticulitis. Appendix normal. Mesentery normal. Small bowel normal. ADENOPATHY/RETROPERITONEUM: No lymphadenopathy. AORTA/VASCULATURE: Normal caliber aorta. FREE FLUID OR FREE AIR: No free fluid.. CT pelvis: SOLID ORGANS/REPRODUCTIVE: Unremarkable. BLADDER: Within normal limits. OSSEOUS STRUCTURES: No acute osseous abnormality.No suspicious lesions. OVERLYING SOFT TISSUES: Small fat-containing left inguinal hernia, sequelae of previous surgery noted in the right inguinal soft tissues. IMPRESSION: 1. No etiology identified to explain the patient's symptoms. Follow-up suggested if symptoms persist. Reviewed, dictated and finalized at location A. IMPRESSION: 1. No etiology identified to explain the patient's symptoms. Follow-up suggeste d if symptoms persist.
--- OUTSIDE RECORDS SUMMARY | 2025-01-20 16:25 | XMS_ITS | Clinical Summary ---
Author Organization [facility] Address [address] [place] [id number] Care Team Providers Care Masking Machine Operator Name Role Phone None, Provider MD Primary [...] 1:10 PM CDT Height 175.3 cm (5' 9) 11/05/2019 1:10 PM CDT Body Mass Index 28.5 11/05/2019 1:10 PM CDT Plan of Treatment Health Maintenance Due Date Last Done Comments Annual Physical 02/25/1988 Hepatitis C 2003 DTaP, Tdap and Td Vaccines ( 1 - Tdap) 02/25/2004 Hepatitis B Vaccines (1 of 3 - 19+ 3-dose series) 02/25/2004 HPV Vaccines (1 - 3-dose SCD M series) 02/25/2012 COVID-19 Vaccine (2023-2 5 season) 2024 Meningococcal B Vaccine Aged Out No l [...] age to complete this topic Care Teams Masking Machine Operator Relationship Specialty Start Date End Date None, Provider, PCP - General 11/05/19
[2025-01-20 16:32] VITALS: BP 136/100; PULSE 102; RESP 18; TEMP 36.7; O2SAT 99
[2025-01-20] MEDS: HYDROcodone/acetaminophen (*CRX) 10-325 MG TABLET 1 TAB PO (17:35)
[2025-01-20] MEDS: CYCLOBENZAPRINE HCL 10 MG TABLET PO (17:35)
--- NOTE | 2025-01-20 18:46 | ED.GENADULT ---
HPI - General Adult General Chief complaint: Back Pain/Injury Stated complaint: R leg pain Time Seen by Provider: 01/20/25 16:26 History of Present Illness HPI narrative: 39-year-old male present to the emergency department for evaluation for lower back pain and right leg pain. Patient reports he has had previous pain like this. Patient states that he was working and went to stand up from the floor and felt pain and the lower back that does radiate to the leg he and pain is worsened with lifting his leg. Patient denies any associated numbness or weakness. Patient denies any change in bowel or bladder habits. Related Data Allergies Allergy/AdvReac Type Severity Reaction Status Date / Time omeprazole Allergy Severe Swelling Verified 12/21/24 09:05 of Lip/Tongue/Throat Review of Systems Review of Systems: All systems reviewed & are unremarkable except as noted in HPI and below PMFSH Past Medical History Medical History (Updated 01/21/25 @ 00:00 by Javid Roass) Smoker Obesity Asthma Dental infection 05/14/23 Surgical History Surgical History (Updated 12/21/24 @ 09:07 by Darcie Hopson CMA) Hx of inguinal hernia repair 11/22/2024 Robotic assisted laparoscopic right inguinal hernia repair with Bard 3D mid weight mesh Family History Family History Mother Diabetes mellitus Hypertension Heart disease Grandparent Hypertension Social History Social History Smoking packs per day: 1 Smoking cigarettes per day: 20.0 Years smoked: 10 Smoking pack-years: 10.00 Smoking status: Current every day smoker Tobacco type: cigarettes Current Housing: Decline to Answer Concerned About Future Housing: Decline to Answer Difficulty Paying Gas/Electric Bills: Decline to Answer Difficulty Paying for Meds: Decline to Answer Currently Unemployed: Decline to Answer Education: Decline to Answer Difficulty w/ Childcare or Family Care: Decline to Answer Living arrangements: with family Spiritual care concerns: No Exam Narrative: APPEARANCE: Uncomfortable appearing HEAD: normocephalic, atraumatic. EYES: PERRLA/EOMI, conjunctivae clear. NOSE: Normal no drainage EARS:TMS clear with good light reflex. THROAT: Pharynx clear, no exudate. NECK: Supple. No adenopathy, no masses. RESPIRATORY: Airway patent, respirations nonlabored. Clear to auscultation bilaterally, no rales, rhonchi, wheezing. CARDIOVASCULAR: Regular rate and rhythm without murmurs rubs or gallops. ABDOMINAL: Soft, nontender, nondistended, normal bowel sounds MUSCULOSKELETAL: No pain with passive lifting the right leg but patient is unable to lift the right leg secondary to pain and the buttock back NEURO: Alert. Cranial nerves II through XII intact. Good gait. Good coordination SKIN: Warm, dry. Normal Color Course Vital Signs Vital signs: Vital Signs Temperature 98.1 F 01/20/25 16:32 Pulse Rate 102 H 01/20/25 16:32 Respiratory Rate 18 01/20/25 16:32 Blood Pressure 136/100 H 01/20/25 16:32 Pulse Oximetry 99 01/20/25 16:32 Oxygen Delivery Room Air 01/20/25 16:32 Temperature 98.3 F 01/20/25 19:07 Pulse Rate 76 01/20/25 19:07 Respiratory Rate 16 01/20/25 19:07 Blood Pressure 117/76 01/20/25 19:07 Pulse Oximetry 98 01/20/25 19:07 Oxygen Delivery Room Air 01/20/25 16:32 Medical Decision Making MDM Narrative Medical decision making narrative: 39-year-old male presents emergency department for evaluation for right-sided lower back pain. Patient states when he sits did of he had onset right lower back pain that does worsen when straightening the right leg. Patient did feel improved with [place] and cyclobenzaprine in the emergency department. CT scan was ordered because the patient is also feeling some change in his right lower quadrant where he had a recent hernia repair. CT scan was negative. Patient was able to ambulate with crutches. Patient will be provided a Medrol Dosepak, Flexeril and [place] for pain control. Patient was encouraged of close follow-up with Orthopedics. Suspect muscular tear verses muscular strain Differential Diagnosis Differential Diagnosis: Sciatica, lumbar strain, gluteal muscular strain, muscle tear Vital Signs Vital Signs: Vital Signs Temperature 98.1 F 01/20/25 16:32 Pulse Rate 102 H 01/20/25 16:32 Respiratory Rate 18 01/20/25 16:32 Blood Pressure 136/100 H 01/20/25 16:32 Pulse Oximetry 99 08/28/25 16:32 Oxygen Delivery Room Air 01/20/25 16:32 Temperature 98.3 F 01/20/25 19:07 Pulse Rate 76 01/20/25 19:07 Respiratory Rate 16 01/20/25 19:07 Blood Pressure 117/76 01/20/25 19:07 Pulse Oximetry 98 01/20/25 19:07 Oxygen Delivery Room Air 01/20/25 16:32 Discharge Plan Discharge Clinical Impression: Strain of lumbar region, Acute leg pain Patient Disposition: Home Condition: Stable Instructions: Antibiotic Form Additional Instructions: Crutches for limited weight-bearing. Medrol Dosepak as directed until completed. Flexeril for muscle spasm. [place] as needed for additional pain control. Have close follow-up with your primary care physician. Additionally you may need an outpatient MRI. Have close follow-up with Orthopedics Patient Language: Sami Prescriptions: New hydrocodone-acetaminophen 5-325 mg tablet 1 tablet PO Q12H PRN (Reason: pain) Qty: 14 0RF methylprednisolone [Medrol (Christian)] 4 mg tablets,dose pack See Rx Instructions .ROUTE .COMPLEX Qty: 21 0RF Rx Instructions: for 6 days cyclobenzaprine 10 mg tablet 10 mg PO BID PRN (Reason: muscle spasm) Qty: 14 0RF No Action oxycodone 5 mg tablet 5 mg PO Q6H PRN (Reason: pain) Qty: 15 0RF Follow-up/Referrals: Anton Bautista MD [Physician, Orthopedics] PHYSICIAN,INSTRUCTIONAL TECHNOLOGY COORDINATOR [Primary Care Provider, Internal Medicine]
[2025-01-20] MEDS: dexAMETHasone SOD PHOS INJ 10 MG/ML 1 ML VIAL IM (18:51)
[2025-01-20 19:07] VITALS: BP 117/76; PULSE 76; RESP 16; TEMP 36.8; O2SAT 98
== END 2025-01-20 19:10 | disposition home or self-care (01) ==
PROVIDERS: Emergency Provider Emergency Medicine
DX: S39.012A Strain of muscle, fascia and tendon of lower back, initial encounter (principal); M79.604 Pain in right leg; J45.909 Unspecified asthma, uncomplicated; E66.9 Obesity, unspecified; Z68.32 Body mass index [BMI] 32.0-32.9, adult; F17.210 Nicotine dependence, cigarettes, uncomplicated; X50.9XXA Other and unspecified overexertion or strenuous movements or postures, initial encounter
CPT/HCPCS: 74176; 96372; 99284; A9270; J1100